=== PATIENT | female | born 2005 | race African-American/Black ===

== ENCOUNTER 2024-02-06 15:56 | Emergency (ER) | payer OTHER, SELFPAY ==
--- NOTE | ~2024-02-06 | XR_ITS ---
XR chest 2V Ordering provider: Jacinda Chao APRN History: 18 years Female with . couch, SOB, wheezing . Comparison: None. FINDINGS: MEDIASTINUM: The cardiac silhouette is not enlarged. LUNGS: No effusions or pneumothorax. Prominent bronchovascular markings in the lower lobes. Early opa cification the left lower lobe is not excluded. Follow-up advised. OTHER: No free air under the diaphragm. IMPRESSION: Prominent bronchovascular markings in the lower lobes. Early opacification which may indicate early p neumonia in the left lower lobe is not excluded. Follow-up advised. Reviewed, dictated and finalized at location A. IMPRESSION: Prominent bronchovascular markings in the lower lobes. Early opacification whic h may indicate early pneumonia in the left lower lobe is not excluded. Follow-u p advised.
[2024-02-06 16:00] VITALS: BP 143/86; PULSE 80; RESP 18; TEMP 36.3; O2SAT 100
--- NOTE | 2024-02-06 16:15 | ED.ASTHMA ---
HPI - Asthma General Chief Complaint: Asthma Stated Complaint: ASTHMA Time Seen by Provider: 02/06/24 16:15 History of Present Illness HPI Narrative: 18-year-old female Present to the emergency department for evaluation worsening shortness of breath secondary to asthma attack. Patient states he has been using her albuterol inhaler but has also been having increased seasonal allergies. Patient does have postnasal drip. Patient reports increased shortness breath and increased wheeze. Patient appears to be in no distress at time of evaluation. Patient denies any prior hospitalizations secondary to her asthma. Related Data Allergies Allergy/AdvReac Type Severity Reaction Status Date / Time Fish Containing Products Allergy Hives Verified 02/06/24 15:58 peanut Allergy Hives Verified 02/06/24 15:58 shellfish derived Allergy Hives Verified 02/06/24 15:58 Review of Systems Review of Systems: All systems reviewed & are unremarkable except as noted in HPI and below Exam Narrative: APPEARANCE: Well appearing, no pain, no distress, well-nourished. HEAD: normocephalic, atraumatic. EYES: PERRLA/EOMI, conjunctivae clear. NOSE: Normal no drainage EARS:TMS clear with good light reflex. THROAT: Pharynx clear, no exudate. NECK: Supple. No adenopathy, no masses. RESPIRATORY: Wheezing on expiration CARDIOVASCULAR: Regular rate and rhythm without murmurs rubs or gallops. ABDOMINAL: Soft, nontender, nondistended, normal bowel sounds MUSCULOSKELETAL: Moves all extremities. Strength/ROM intact, No edema, No calf tenderness. NEURO: Alert. Cranial nerves II through XII intact. Grossly intact SKIN: Warm, dry. Normal Color Course Vital Signs Vital signs: Vital Signs Temperature 97.3 F L 02/06/24 16:00 Pulse Rate 80 02/06/24 16:00 Respiratory Rate 18 02/06/24 16:00 Blood Pressure 143/86 H 02/06/24 16:00 Pulse Oximetry 100 02/06/24 16:00 Oxygen Delivery Room Air 02/06/24 16:00 Temperature 98.2 F 02/06/24 17:22 Pulse Rate 97 02/06/24 17:22 Respiratory Rate 18 02/06/24 17:22 Blood Pressure 150/85 H 02/06/24 17:22 Pulse Oximetry 100 02/06/24 17:22 Oxygen Delivery Room Air 02/06/24 16:05 MDM - Asthma MDM Narrative Medical decision making narrative: 18-year-old female presenting to the emergency department for evaluation for asthma and worsening shortness of breath. Chest x-ray is concerning for possible pneumonia. Patient will be started on antibiotics. Patient was advised to continue taking her Zyrtec while she is having seasonal allergies. Patient will be started on Prednisone and patient will also be started on a azithromycin and Augmentin for pneumonia. Differential Diagnosis Differential diagnosis: Likely Acute exacerbation, Status asthmaticus, Pneumonia, COPD exacerbation, Pulmonary edema dystolic and Pneumothorax Lab Data Labs: Lab Results 02/06/24 Range/Units 16:07 Influenza A (RT-PCR) Negative (Negative) Influenza B (RT-PCR) Negative (Negative) RSV (RT-PCR) Negative (Negative) SARS-CoV-2 RNA (RT-PCR) Negative (Negative) Discharge Plan Discharge Clinical Impression: Asthma with acute exacerbation, Pneumonia Patient Disposition: Home, Self-Care Condition: Stable Instructions: Antibiotic Form, Asthma (ED) Additional Instructions: antibiotic as directed until completed. Prednisone as directed until completed. Use your albuterol inhaler as directed with a spacer. If you have any worsening symptoms then please call or return to the emergency department. Prescriptions: New albuterol sulfate 90 mcg/actuation HFA aerosol inhaler 1 inh inhalation QID PRN (Reason: shortness of breath or wheezing) Qty: 6.7 0RF prednisone 50 mg tablet 50 mg PO DAILY 5 Days Qty: 5 0RF amoxicillin-pot clavulanate 875-125 mg tablet 1 tablet PO Q12H Qty: 14 0RF azithromycin 250 mg tablet See Rx Instructions .ROUTE .COMPLEX Qty: 6 0RF
[2024-02-06 16:50] VITALS: PULSE 82; RESP 18
[2024-02-06 16:50] LABS: Influenza A QL RT-PCR Negative (Negative); Influenza B QL RT-PCR Negative (Negative); RSV RNA, RT-PCR Negative (Negative); SARS-CoV-2 RNA PCR Negative (Negative)
[2024-02-06] MEDS: ALBUTEROL SULFATE NEB 2.5 MG/3 ML INH 5 MG INHALATION (16:50)
[2024-02-06 17:05] VITALS: PULSE 85; RESP 18
[2024-02-06] MEDS: AMOXICILLIN/CLAVULANATE K 875-125 MG TAB 1 TABLET PO (17:07)
[2024-02-06] MEDS: AZITHROMYCIN 250 MG TABLET 500 MG PO (17:08)
[2024-02-06 17:22] VITALS: BP 150/85; PULSE 97; RESP 18; TEMP 36.8; O2SAT 100
== END 2024-02-06 17:50 | disposition home or self-care (01) ==
LOC: ANHED 17:49
PROVIDERS: Registered Nurse; Emergency Provider Emergency Medicine
DX: J18.9 Pneumonia, unspecified organism (principal); J45.901 Unspecified asthma with (acute) exacerbation; Z20.822 Contact with and (suspected) exposure to COVID-19
CPT/HCPCS: 71046; 87637; 94640; 94664; 99283; A9270

== ENCOUNTER 2025-02-19 10:21 | Emergency (ER) | payer OTHER, SELFPAY ==
--- NOTE | ~2025-02-19 | XR_ITS ---
EXAMINATION: XR abdomen obstructive series, 02/19/2025 12:10 CDT HISTORY: constipation-right sided abdomen pain COMPARISON: No comparisons available. Technique: 3 view. Findings: Moderate fecal content, diminished air throughout the bowel No free air. No abnormal calcifications No acute osseous abnormality. Impression: 1. No acute abnormality. Reviewed, dictated and finalized at location P. Impression: 1. No acute abnormality.
[2025-02-19 10:24] VITALS: BP 143/74; PULSE 64; RESP 16; TEMP 36.6; O2SAT 98
--- NOTE | 2025-02-19 11:32 | ED_ITS ---
HPI - Nausea/Vomiting/Diarrhea General Chief complaint: Nausea/Vomiting/Diarrhea Stated complaint: n/v/d Time Seen by Provider: 02/19/25 11:26 Source: patient Mode of arrival: ambulatory Limitations: no limitations History of Present Illness HPI Narrative: Sacha is a 19-year-old female patient presenting to the emergency room with complaints of right-sided abdominal pain, nausea, vomiting, diarrhea/mucus. She has not taken any medications for her symptoms. Rates her pain a 01/31. States the pain is sharp, cramping, and constant. Last menstrual period was the last week of December. Is on control and her periods are irregular. CC states she has vomited a total of 3 times in the past week. Last bowel movement was 1 week ago. No blood in her stool. She denies any fevers, chills, body aches but does have some hot flashes at times. Related Data Allergies Allergy/AdvReac Type Severity Reaction Status Date / Time Fish Containing Products Allergy Hives Verified 02/19/25 10:24 peanut Allergy Hives Verified 02/19/25 11:29 shellfish derived Allergy Hives Verified 02/19/25 11:29 Review of Systems 2 Review of Systems: Pertinent positives per HPI. Patient denies any fever, chills, rash, headache, visual changes, dizziness, cough, runny nose, sore throat, shortness of breath, chest pain, palpitations, or any urinary issues. PMFSH Comments At the time of my signature, I reviewed and agree with the nursing past medical, surgical, social, and family history. There is no relevant family history pertinent to the patient complaint. Exam 2 Narrative: General: Well-developed, morbidly obese, in no apparent distress. Head: Normocephalic, atraumatic. Cardio: Regular rate and rhythm, s1 and s2 normal, no murmur appreciated. Resp: Clear to auscultation bilaterally, no rhonchi, rales, wheezing or rubs. Abdomen: Soft, pliable, bowel sounds present in all quadrants, right-sided abdomen tender to palpation, no organomegly, no CVAT tenderness. Course Course Emergency Course: Portions of this record may have been created with voice recognition software. Vital Signs Vital signs: Vital Signs Temperature 36.6 C 02/19/25 10:24 Pulse Rate 64 02/19/25 10:24 Respiratory Rate 16 02/19/25 10:24 Blood Pressure 143/74 H 02/19/25 10:24 Pulse Oximetry 98 02/19/25 10:24 Temperature 36.6 C 02/19/25 10:24 Pulse Rate 65 02/19/25 14:13 Respiratory Rate 18 02/19/25 14:13 Blood Pressure 115/60 02/19/25 14:13 Pulse Oximetry 100 02/19/25 14:13 Vital signs reviewed MDM - Nausea/Vomiting/Diarrhea MDM Narrative Medical decision making narrative: At the time of visit patient is resting comfortably on the exam table. Patient appears to be nontoxic. Complaints of right-sided abdominal pain, nausea, vomiting, diarrhea/mucus. She has not taken any medications for her symptoms. Rates her pain a 10/10. States the pain is sharp, cramping, and constant. Last menstrual period was the last week of December. Is on control and her periods are irregular. CC states she has vomited a total of 3 times in the past week. Last bowel movement was 1 week ago. No blood in her stool. Patient states she feels constipated. She denies any fevers, chills, body aches but does have some hot flashes at times. Labs and x-ray the abdomen was ordered. Labs: CBC shows white blood cell count of 5.4, H&H 12.840.8, chemistry unremarkable, urine shows cloudy urine with 1+ protein, 4+ ketones, 1+ blood, 2+ leuko Estrace, 11-20 red blood cells, 21-50 white blood cells, 1+ bacteria, bedside test was negative. Diagnostics: X-ray of the abdomen shows moderate stool in the colon without sign of obstruction. Medications: Rocephin 1 g IV piggyback was given in the ER. Plan: I suspect patient has UTI with possibly moderate constipation. Encouraged to use MiraLax daily. Patient is currently taking Macrobid for her UTI. Will switch to cephalexin. Supportive measures were discussed with the patient and they voiced understanding discharge instructions and agrees to treatment plan. Return precautions reviewed Differential Diagnosis Differential diagnosis: Likely traveler's diarrhea, food poisoning, gastroenteritis, clostridium difficile infection, drug-induced nausea and vomiting, dehydration and other (UTI, obstruction) Lab Data 02/19/25 11:50 02/19/25 11:50 Labs: Lab Results 02/19/25 Range/Units 11:50 WBC 5.4 (4.5-10.0) K/mm3 RBC 4.73 (4.2-5.4) M/mm3 Hgb 12.8 (12.0-15.0) g/dL Hct 40.8 (37.0-47.0) % MCV 86.3 (80-100) fl MCH 27.1 (26-34) pg MCHC 31.4 L (32-36) g/dl RDW 13.6 (11.5-14.5) % Plt Count 248 (150-375) k/mm3 MPV 10.5 H (7.4-10.4) fl Immature Gran % (Auto) 0.2 (0-0.5) % Neut % (Auto) 57.8 (45.5-73.1) % Lymph % (Auto) 30.8 (18.3-44.2) % [place] % (Auto) 7.1 (2.6-8.5) % Eos % (Auto) 3.2 (0-4.4) % Baso % (Auto) 0.9 (0.2-1.2) % Lymph # (Auto) 1.65 (0.9-3.2) K/mm3 [place] # (Auto) 0.4 (0.1-0.6) K/mm3 Eos # (Auto) 0.2 (0-0.3) K/mm3 Baso # (Auto) 0.1 (0.0-0.1) K/mm3 Abs Immat Gran (auto) 0.01 (0.00-0.031) K/mm3 Absolute Neuts (auto) 3.1 (1.3-6.7) K/mm3 Absolute Nucleated RBC 0.000 (0.0-0.012) K/mm3 Nucleated RBC % 0.0 (0.0-0.2) % Sodium 137 (137-145) mmol/L Potassium 4.3 (3.4-5.0) mmol/L Chloride 105 (98-107) mmol/L Carbon Dioxide 22 (22-30) mmol/L Anion Gap 10 (4-12) mmol/L BUN 9 (7-17) mg/dL Creatinine 0.85 (0.7-1.0) mg/dL Estim Creat Clear Calc 145 ml/min Estimated GFR > 60 (59 - ) Glucose 89 (65-110) mg/dL Calcium 8.9 (8.4-10.2) mg/dL Total Bilirubin 1.1 (0.2-1.3) mg/dL AST 36 (14-36) U/L ALT 15 (6-35) U/L Alkaline Phosphatase 51 (38-126) U/L Total Protein 8.4 H (6.3-8.2) g/dL Albumin 4.5 (3.5-5.1) g/dL Lipase 66 (23-300) U/L Urine Color Yellow (Yellow) Urine Appearance Cloudy H (Clear) Urine pH 6.0 (5.0-9.0) Ur Specific [place] 1.026 (1.001-1.035) Urine Protein 1+ H (Negative) mg/dL Urine Glucose (UA) Negative (Negative) mg/dL Urine Ketones 4+ H (Negative) mg/dL Ur Blood (Man) 1+ H (Negative) Urine Nitrate Negative (Negative) Urine Bilirubin Negative (Negative) Urine Urobilinogen 1.0 (<2.0) mg/dL Add Ur Microanalysis Reviewed Leukocyte Esterase Rfl 2+ H (Negative) JAMSHID/UL Urine RBC 11-20 H (0-2) /hpf Urine WBC 21-50 H (0-3) /hpf Ur Squamous Epith Cells Many H (Few) /hpf Urine Bacteria 1+ H /hpf Urine Casts 3-5 POC Urine HCG, Qual Negative (Negative) Imaging Data Radiologist's impression: ITS Impressions Abdomen X-Ray 02/19/25 12:19 Impression: 1. No acute abnormality. Discharge Plan Discharge Clinical Impression: Right sided abdominal pain UTI (urinary tract infection) Qualifiers: Urinary tract infection type: acute cystitis Hematuria presence: with hematuria Qualified Code(s): N30.01 - Acute cystitis with hematuria Patient Disposition: Home Condition: Stable Instructions: Antibiotic Form, Urinary Tract Infection in Women (ED), Abdominal Pain (ED) Additional Instructions: Rocephin 1 g IV piggyback given in the ER Labs are reassuring Urinalysis shows UTI X-ray of the abdomen shows moderate stool in your abdomen without sign of obstruction Increase fluids and stay well hydrated May take MiraLax daily for constipation as needed Stop Macrobid and start cephalexin. Follow-up with your PCP in 3-5 days if symptoms persist or sooner if they worsen Patient Language: South Korean Prescriptions: New cephalexin 500 mg capsule 500 mg PO Q12H 7 Days Qty: 14 0RF No Action albuterol sulfate 90 mcg/actuation HFA aerosol inhaler 1 inh inhalation QID PRN (Reason: shortness of breath or wheezing) Qty: 6.7 0RF prednisone 50 mg tablet 50 mg PO DAILY 5 Days Qty: 5 0RF amoxicillin-pot clavulanate 875-125 mg tablet 1 tablet PO Q12H Qty: 14 0RF azithromycin 250 mg tablet See Rx Instructions .ROUTE .COMPLEX Qty: 6 0RF Rx Instructions: For 250 mg dose pack: take 500 mg today (day 1), then 250 mg for 4 days (days 2-5) Follow-up/Referrals: UNKNOWN,DOCTOR [Primary Care Provider] Time of Disposition: 14:01 Quality NIHSS Nursing Documentation ED NIHSS nursing documentation: reviewed/agree
--- OUTSIDE RECORDS SUMMARY | 2025-02-19 11:36 | XMS_ITS | Clinical Summary ---
Author Organization [facility] Address [address] [place] [address] Care Team Providers Care Grain Elevator Man Name Role Phone Primo Min GYROSCOPIC INSTRUMENT MECHANIC Primary Care Provider [phone] Source Comments You are receiving this document as you are listed as the PCP, follow-upprovider, or the patient hasbeen referred to you for consultation. This is incompliance with [facility] Transitions of Care Requirement. Note: Specific treatmentrecords and notes about services for mental health, developmental disabilities,alcoholism, drug dependence, or substance abuse, you will need to contact theMedical Records Department at [phone] and complete a separate Release ofAuthorization form. They are also available to answer other questions.[facility] Allergies No known active allergies Medications * Please verify all current medications with the patient. Medication Sig Dispensed Refills Start Date End Date Status albuterol (PROVENTIL, VENTOLIN) 90 mcg base/puff Aero Soln HFA inhaler Inhale 1 Puff into the lungs every 6 (six) hours if needed. Active Active Problems Problem Noted Date Diagnosed Date Difficult airway 08/30/2023 Right arm weakness Brachial plexopathy, congenital Encounters Date Type Department Care Team Description 12/05/2024 2:15 PM CDT Therapy Visit [facility] [address] [place] [address] Laura Flores MD Ringer, Cathy, OTR/L Discharge Disposition: HOME 12/04/2024 4:00 PM CDT [facility] [address] [place] [address] Laura Flores MD Ringer, Cathy, OTR/L Discharge Disposition: HOME 12/03/2024 3:15 PM CDT [facility] [address] [place] [address] Laura Flores MD Grbic, Bozana Discharge Disposition: HOME 11/27/2024 12:45 PM CDT Therapy Visit [facility] [address] [place] [address] Laura Flores MD Ringer, Cathy, OTR/L Discharge Disposition: HOME 11/21/2024 4:00 PM CDT Therapy Visit [facility] [address] [place] [address] Laura Flores MD Grbic, Bozana Discharge Disposition: HOME from Last 3 Months Social History Tobacco Use Types Packs/Day Years Used Date Smoking Tobacco: Never Passive Smoke Exposure: Never Smokeless Tobacco: Never Tobacco Cessation:Counseling Given: Yes Alcohol Use Standard Drinks/Week Comments Never 0 (1 standard drink = 0.6 oz pur e alcohol) Overall Financial Resource Strain (CARDIA) Answe r Date Recorded How hard is it for you to pa y for the very basics like food, housing, medical care, and heating? Not hard at all 11/14/2024 PHQ-2 Answer Date Recorded PHQ-2 Score 0 08/01/2023 Hunger Vital Sign Answer Date Recorded Within the past 12 months, y ou worried that your food would run out before you got the money to buy more. Never true 11/15/19 25 Within the past 12 months, t he food you bought just didn't last and you didn't have money to get more. Never true 11/14/2024 PRAPARE - Transportation Answer Date Re corded In the past 12 months, has l ack of transportation kept you from medical appointments or from getting medications? No 10/23 In the past 12 months, has l ack of transportation kept you from meetings, work, or from getting things needed for daily living? Yes 11/14/2024 Housing Stability Vital Sign Answer Oh e Recorded In the last 12 months, was t here a time when you were not able to pay the mortgage or rent on time? No 10/18/2023 In the last 12 months, how many places have you lived? 1 10/18/2023 In the last 12 months, was t here a time when you did not have a steady place to sleep or slept in a fci (including now)? No 10/18/2023 Sex and Gender Information Value Date Recorded Sex Assigned at Not on file Gender Identity Not on file Sexual Orientation Not on file Last Filed Vital Signs Vital Sign Reading Time Taken Comments Blood Pressure 117/83 10/18/2023 1:52 PM CDT Pulse 107 10/18/2023 1:52 PM CDT Temperature - - Respiratory Rate - - Oxygen Saturation 100% 10/18/2023 1:52 PM CDT Inhaled Oxygen Concentration - - Weight 151.1 kg (333 lb 3.2 oz) 10/18/2023 1:52 PM CDT Height 173 cm (5' 8.11) 10/18/2023 1:52 PM CDT Body Mass Index 50.5 10/18/2023 1:52 PM CDT Plan of Treatment Health Maintenance Due Date Last Done Comments HIV SCREEN 12/25/2019 ANNUAL BMI COUNSELING 07/31/2024 08/01/2023 ANNUAL DEPRESSION SCREENING,ADULT 07/31/2024 08/01/2023 Covid-19 Vaccine (2 6 season) 2024 04/09/2021 INFLUENZA VACCINE (#1) 2024 CHOL SCREENING: EVERY 5 YEARS 2024 ADULT VACCINE: TETANUS( TD) BOOSTER,EVERY 10 YR 09/23/2026 09/23/2016 ADULT VACCINE: SHINGRIX (1 o f 2) 2054 VACCINE: HPV (CDC RULES) Completed 018, 11/29/2016, 10/27/2016 PEDS RSV < 20 MON Aged Out No longer eligible based on patient's age to complete this topic PNEUMOCOCCAL VACCINE Aged Out No long er eligible based on patient's age to complete this topic Care Teams Grain Elevator Man Relationship Specialty Start Date End Date Primo Min NP [address] [place] [id number] PCP - General Family Practice 02/13/23
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
--- OUTSIDE RECORDS SUMMARY | 2025-02-19 11:36 | XMS_ITS | Clinical Summary ---
Author Organization [facility] Care Team Providers Care Guard Range Name Role Phone Unavailable Primary Care Provider Unavailabl e Social History Tobacco Use Types Packs/Day Years Used Date Smoking Tobacco: Never Assessed Comments Unknown Sex and Gender Information Value Date Recorded Sex Assigned at Not on file Legal Sex Female 1:04 PM SYSTEM DEVELOPMENT MANAGER Gender Identity Not on file Sexual Orientation Not on file Plan of Treatment Health Maintenance Due Date Last Done Comments Hepatitis C Virus (HCV) Screening 2004 TdaP Immunization 2004 Human Papillomavirus (HPV) Immunization (1 - 3-dose series) 12/25/2019 Meningococcal B Immunization (1 of 2 - Standard) 2020 Hepatitis B Immunization (1 of 3 - 19+ 3-dose series) 12/25/2023 Influenza Immunization (#1) 2024 SARS-COV-2 Immunization ( - season) 2024 Respiratory Syncytial Virus (RSV) Immunization (Adult) (1 - 1-dose 75+ series) 12/25/2079 Meningococcal Immunization (ACWY) Aged Out No longer eligible based on patient's age to complete this topic Pneumococcal Immunization Combined Aged Out No longer eligible based on patient's age to complete this topic Rotavirus Immunization Aged Out No lo nger eligible based on patient's age to complete this topic
[2025-02-19 11:53] LABS: BEDSIDEPREGUCG Negative (Negative)
[2025-02-19 11:59] LABS: Hematocrit 40.8 % (37.0-47.0); Hemoglobin 12.8 g/dL (12.0-15.0); Immature Granulocyte Percent A 0.2 % (0-0.5); Lymphocytes Absolute Auto 1.65 K/mm3 (0.9-3.2); Mean Corpuscular HGB Conc 31.4 g/dl (32-36); Mean Corpuscular Hemoglobin 27.1 pg (26-34); Mean Corpuscular Volume 86.3 fl (80-100); Nucleated Red Blood Cells Absolute Auto 0.000 K/mm3 (0.0-0.012); Nucleated Red Blood Cells Perc 0.0 % (0.0-0.2); Platelet Count Result 248 k/mm3 (150-375); Red Blood Count 4.73 M/mm3 (4.2-5.4); White Blood Count 5.4 K/mm3 (4.5-10.0)
[2025-02-19 12:12] LABS: Add Urine Microscopic? YES; Appearance Urine Cloudy (Clear); Glucose Urine UA Negative (Negative); Leukocyte Esterase Ur 2+ LEU/UL (Negative); Need Manual Microscopic Reviewed; Nitrate Urine Negative (Negative); Specific Grav Ur 1.026 (1.001-1.035)
[2025-02-19 12:28] LABS: Alanine Aminotransferase 15 U/L (6-35); Albumin Level 4.5 g/dL (3.5-5.1); Alkaline Phosphatase 51 U/L (38-126); Anion Gap 10 mmol/L (4-12); Aspartate Amino Transferase 36 U/L (14-36); Bilirubin,Total 1.1 mg/dL (0.2-1.3); Blood Urea Nitrogen 9 mg/dL (7-17); Calcium 8.9 mg/dL (8.4-10.2); Carbon Dioxide 22 mmol/L (22-30); Chloride 105 mmol/L (98-107); Estimated CRCL calculation 145 ml/min; Estimated Glomerular Filt Rate > 60; Glucose 89 mg/dL (65-110); Lipase 66 U/L (23-300); Potassium 4.3 mmol/L (3.4-5.0); Sodium 137 mmol/L (137-145); Total Protein 8.4 g/dL (6.3-8.2)
[2025-02-19] MEDS: IBUPROFEN 400 MG TABLET 800 MG PO (13:08)
[2025-02-19] MEDS: cefTRIAXone 1 GM in SODIUM CHLORIDE 0.9% IV 50 ML 100 ML IVPB (13:08)
--- OUTSIDE RECORDS SUMMARY | 2025-02-19 13:17 | XMS_ITS | Clinical Summary ---
Author Organization [facility] Address [address] [place] [address] Care Team Providers Care Blood Bank Technologist Name Role Phone Pcp Outside [facility], Unknown Primary Care Provider U navailable Allergies [...] negative. Positive results are reported to the [facility] Department of Public Health. The Aptima Combo [...] l Result ACL [place] [facility] [address] [place] [address] from Last 3 Months or Most Recently Relevant to Health Maintenance Insurance [facility] Member Subscriber Plan / Payer (Ef fective 2020-Present) Name:Sacha Pedraza Relation to Subscriber:Self Name:Sacha Pedraza Payer ID:Not on file Type:T19 HMO Address: [address] [address] [facility] Member Subscriber Plan / Payer (Ef fective 2020-Present) Name:Sacha Pedraza Relation to Subscriber:Self Name:Sacha Pedraza Payer ID:Not on file Type:T19 [facility] Address: [address] [place] [address] [employer] Member Subscriber Plan / Payer (Ef fective 2021-Present) Name:Sacha Pedraza Relation to Subscriber:Self Name:Sacha Pedraza Payer ID:Not on file Type:T19 Address: [address] [address] [place] [address] Care Teams Blood Bank Technologist Relationship Specialty Start Date End Date Pcp Outside [facility], Unknown NO KNOWN ADDRESS ON FILE PCP - General 09/06/23
--- OUTSIDE RECORDS SUMMARY | 2025-02-19 13:17 | XMS_ITS | Clinical Summary ---
Author Organization [facility] Address [address] [place] [address] Care Team Providers Care Food Assembler Kitchen Name Role Phone Primo Min CABLE ENGINEER Primary Care Provider [phone] Source Comments You are receiving this document as you are listed as the PCP, follow-upprovider, or the patient hasbeen referred to you for consultation. This is incompliance with [facility] Transitions of Care Requirement. Note: Specific treatmentrecords and notes about services for mental health, developmental disabilities,alcoholism, drug dependence, or substance abuse, you will need to contact theMedical Records Department at [phone] and complete a separate Release ofAuthorization form. They are also available to answer other questions.[facility] Allergies No known active allergies Medications * [...] Description 12/05/2024 2:15 PM CDT Therapy Visit [facility] [address] [address] [place] [address] Laura Flores MD Ringer, Cathy, OTR/L Discharge Disposition: HOME 12/04/2024 4:00 PM CDT Therapy Visit [facility] [address] [place] [address] Laura Flores MD Ringer, Cathy, OTR/L Discharge Disposition: HOME 12/03/2024 3:15 PM CDT Therapy [facility] [address] [address] [place] [address] Laura Flores MD Grbic, Bozana Discharge Disposition: HOME 11/27/2024 12:45 PM CDT Therapy Visit [facility] [address] [place] [address] Laura Flores MD Ringer, Cathy, OTR/L Discharge Disposition: HOME 11/21/2024 4:00 PM CDT Therapy Visit [facility] [address] [place] [address] Laura Flores MD Grbic, Bozana Discharge Disposition: [...] place to sleep or slept in a fpc (including now)? No 10/18/2023 Sex and Gender [...] age to complete this topic Care Teams Food Assembler Kitchen Relationship Specialty Start Date End Date Primo Min NP [address] [place] [phone] PCP - General Family Practice 02/13/23
--- OUTSIDE RECORDS SUMMARY | 2025-02-19 13:17 | XMS_ITS | Clinical Summary ---
Author Organization [facility] Care Team Providers Care Speech Language Pathology Assistant Name Role Phone Unavailable Primary Care Provider Unavailabl e Social History Tobacco Use Types Packs/Day Years Used Date Smoking Tobacco: Never Assessed Comments Unknown Sex and Gender Information Value Date Recorded Sex Assigned at Not on file Legal Sex Female 1:04 PM NEONATAL ICU COORDINATOR Gender Identity Not on file Sexual Orientation [...]
[2025-02-19 14:13] VITALS: BP 115/60; PULSE 65; RESP 18; O2SAT 100
== END 2025-02-19 14:15 | disposition home or self-care (01) ==
PROVIDERS: Emergency Provider Nurse Practitioner Family
DX: N30.01 Acute cystitis with hematuria (principal)
CPT/HCPCS: 36415; 74019; 80053; 81001; 81025; 83690; 85025; 96365; 99284; A9270; J0696

== ENCOUNTER 2025-02-22 12:21 | Emergency (ER) | payer OTHER, SELFPAY ==
--- NOTE | ~2025-02-22 | CT_ITS ---
Sacha Pedraza EXAMINATION: CT abdomen pelvis w con COMPARISON: None HISTORY: ABDOMINAL PAIN TECHNIQUE: Axial images were obtained through the abdomen, pelvis post administration of IV contrast. Oral contrast was also administered. Coronal reconstruction images were obtained from the axial views. CT scan performed using dose optimization techniques including the following automated exposure control; adjustment of mA and/or kV; use of iterative reconstruction technique. Automatic exposure control was used to reduce radiation dose. Permanent radiation dose record is archived to PACS. FINDINGS: CT abdomen: LUNG BASES: The lung bases are clear. The visualized portions of the heart and pericardium are unremarkable. LIVER: Unremarkable, liver contours intact, no lesions. SPLEEN: Unremarkable. KIDNEYS: Right Kidney: Unremarkable. No calculi. No hydronephrosis. Left Kidney: Unremarkable. No calculi. No hydronephrosis ADRENAL GLANDS: Unremarkable. PANCREAS: Unremarkable. GALLBLADDER/BILIARY: Unremarkable. No biliary dilatation. STOMACH AND ESOPHAGUS: Visualized stomach and esophagus within normal limits. BOWEL/MESENTERY: No colitis or diverticulitis. Appendix normal. Mesentery normal. Small bowel normal. ADENOPATHY/RETROPERITONEUM: No lymphadenopathy. AORTA/VASCULATURE: Normal caliber aorta. FREE FLUID OR FREE AIR: None. CT pelvis: SOLID ORGANS/REPRODUCTIVE: Unremarkable. BLADDER: Mild circumferential thickening of the bladder related to underlying cystitis. OSSEOUS STRUCTURES: No acute osseous abnormality.No suspicious lesions. OVERLYING SOFT TISSUES: Unremarkable. IMPRESSION: No acute intra-abdominal process Reviewed, dictated and finalized at location P.
--- OUTSIDE RECORDS SUMMARY | 2025-02-22 12:24 | XMS_ITS | Clinical Summary ---
Author Organization [facility] Address [address] [place] [address] Care Team Providers Care Design Leader Name Role Phone Pcp Outside [facility], Unknown Primary Care Provider U navailable [...] negative. Positive results are reported to the [facility] Department of Public Health. The Aptima Combo [...] l Result [place] [facility] [address] [place] [address] from Last 3 Months or Most Recently Relevant to Health Maintenance Insurance [facility] Member Subscriber Plan / Payer (Ef fective 2020-Present) Name:Sacha Pedraza Relation to Subscriber:Self Name:Sacha Pedraza Payer ID:Not on file Type:T19 HMO Address: [address] [address] [facility] Member Subscriber Plan / Payer (Ef fective 2020-Present) Name:Sacha Pedraza Relation to Subscriber:Self Name:Sacha Pedraza Payer ID:Not on file Type:T19 [facility] Address: [address] [place] [address] [employer] Member Subscriber Plan / Payer (Ef fective 2021-Present) Name:Sacha Pedraza Relation to Subscriber:Self Name:Sacha Pedraza Payer ID:Not on file Type:T19 Address: [address] [address] [place] [address] Care Teams Design Leader Relationship Specialty Start Date End Date Pcp Outside [facility], Unknown NO KNOWN ADDRESS ON FILE PCP - General 09/06/23
--- OUTSIDE RECORDS SUMMARY | 2025-02-22 12:24 | XMS_ITS | Clinical Summary ---
Author Organization [facility] Care Team Providers Care Manager Business Management Name Role Phone Unavailable Primary Care Provider Unavailabl e Social History Tobacco Use Types Packs/Day Years Used Date Smoking Tobacco: Never Assessed Comments Unknown Sex and Gender Information Value Date Recorded Sex Assigned at Not on file Legal Sex Female 1:04 PM GRADING SUPERVISOR Gender Identity Not on file Sexual Orientation [...]
--- OUTSIDE RECORDS SUMMARY | 2025-02-22 12:24 | XMS_ITS | Clinical Summary ---
Author Organization [facility] Address [address] [place] [address] Care Team Providers Care Lost Charge Card Clerk Name Role Phone Primo Min CONSTRUCTION SUPERINTENDENT Primary Care Provider [phone] Source Comments You are receiving this document as you are listed as the PCP, follow-upprovider, or the patient hasbeen referred to you for consultation. This is incompliance with [facility] Transitions of Care Requirement. Note: Specific treatmentrecords and notes about services for mental health, developmental disabilities,alcoholism, drug dependence, or substance abuse, you will need to contact theMedical Records Department at [phone] and complete a separate Release ofAuthorization form. They are also available to answer other questions.[facility] Allergies No known active allergies Medications [...] Description 12/05/2024 2:15 PM CDT Therapy Visit [facility] [address] [address] [place] [address] Laura Flores MD Ringer, Cathy, OTR/L Discharge Disposition: HOME 12/04/2024 4:00 PM CDT [facility] [address] [place] [address] Laura Flores MD Ringer, Cathy, OTR/L Discharge Disposition: HOME 12/03/2024 3:15 PM CDT [facility] [address] [place] [phone] Laura Flores MD Grbic, Bojarodgriffin Discharge Disposition: HOME 11/27/2024 12:45 PM CDT [facility] [address] [place] [phone] Laura Flores MD Ringer, Cathy, OTR/L Discharge Disposition: HOME from Last 3 Months [...] place to sleep or slept in a chcf (including now)? No 10/18/2023 Sex and Gender [...] DEPRESSION SCREENING,ADULT 07/31/2024 08/01/2023 Covid-19 Vaccine (2 - 2024-2 6 season) 2024 04/09/2021 INFLUENZA VACCINE (#1) [...] age to complete this topic Care Teams Lost Charge Card Clerk Relationship Specialty Start Date End Date Primo Min NP [address] [place] [phone] PCP - General Family Practice 02/13/23
[2025-02-22 12:30] VITALS: BP 137/67; PULSE 66; RESP 16; TEMP 36.9; O2SAT 100
--- NOTE | 2025-02-22 13:06 | ED_ITS ---
HPI - Abdominal Pain General Chief Complaint: Recheck/Abnormal Lab/Rx Stated Complaint: seen 02/19 RLQ pain, still has pain +N/V Time Seen by Provider: 02/22/25 13:05 Source: patient Mode of arrival: ambulatory Limitations: no limitations History of Present Illness HPI narrative: INTERMITTENT RIGHT ABDOMINAL PAIN FOR THE LAST 7 DAYS, ASSOCIATED WITH NAUSEA, VOMITING, HEAT FLUSH LIKE FEELING. PATIENT DENIES RADIATION OF PAIN, AGGRAVATING OR RELIEVING FACTORS, DENIES HISTORY OF ABDOMINAL SURGERY. PATIENT DENIES SMOKING OR DRINKING, SHE IS USING MARIJUANA DAILY. SHE DENIES ANY FEVER OR CHILLS. Related Data Allergies Allergy/AdvReac Type Severity Reaction Status Date / Time Fish Containing Products Allergy Hives Verified 02/19/25 10:24 peanut Allergy Hives Verified 02/19/25 11:29 shellfish derived Allergy Hives Verified 02/19/25 11:29 Review of Systems 2 Review of Systems: All systems reviewed & are unremarkable except as noted in HPI and below Exam 2 Narrative: GENERAL APPEARANCE: WELL-DEVELOPED, WELL-NOURISHED SKIN: NORMAL COLOR HEAD: NORMOCEPHALIC, NONTRAUMATIC EYES: CLEAR CONJUNCTIVA ENT: OROPHARYNX NORMAL, EARS NORMAL, NOSE NORMAL NECK: SUPPLE, NONTENDER CHEST AND RESPIRATORY: AIRWAY PATENT, NO RESPIRATORY DISTRESS, NO ACCESSORY MUSCLE USE HEART: REGULAR RATE/RHYTHM ABDOMEN: SOFT, DIFFUSE TENDERNESS RIGHT ABDOMEN, NO GUARDING OR REBOUND, QUITE BOWEL SOUNDS VASCULAR: NORMAL PERIPHERAL PULSES, NORMAL CAPILLARY REFILL. MUSCULOSKELETAL: NORMAL RANGE OF MOTION, NONTENDER BACK NEUROLOGIC: ALERT AND ORIENTED ?3, FABRICATION SUPERVISOR IS NORMAL TESTED, NO GROSS MOTOR DEFICIT Course Vital Signs Vital signs: Vital Signs Temperature 36.9 C 02/22/25 12:30 Pulse Rate 66 02/22/25 12:30 Respiratory Rate 16 02/22/25 12:30 Blood Pressure 137/67 02/22/25 12:30 Pulse Oximetry 100 02/22/25 12:30 Oxygen Delivery Room Air 02/22/25 12:30 Temperature 36.9 C 02/22/25 12:30 Pulse Rate 66 02/22/25 12:30 Respiratory Rate 16 02/22/25 12:30 Blood Pressure 137/67 02/22/25 12:30 Pulse Oximetry 100 02/22/25 12:30 Oxygen Delivery Room Air 02/22/25 12:30 MDM - Abdominal Pain MDM Narrative Medical decision making narrative: PATIENT CAME WITH HER RIGHT ABDOMINAL PAIN FOR THE LAST FEW DAYS VITAL SIGNS ARE STABLE PHYSICAL EXAMINATION SHOWING SOME TENDERNESS AT THE RIGHT ABDOMEN WITHOUT GUARDING OR REBOUND DIFFERENTIAL DIAGNOSIS INCLUDE AA CHOLECYSTITIS, APPENDICITIS, COLITIS, DIVERTICULITIS, CONSTIPATION, URINARY TRACT INFECTION, ABDOMINAL WALL TENDERNESS BLOOD WORKUP TODAY INCLUDES CBC, CMP, LIPASE SHOWED NO SIGNIFICANT ABNORMALITY URINALYSIS SHOWED NO SIGNIFICANT ABNORMALITY CT ABDOMEN AND PELVIS WITH IV CONTRAST SHOWED NO SIGNIFICANT ABNORMALITY DIAGNOSIS ABDOMINAL PAIN THE PT WAS DISCHARGED TO HOME.THE PT,S CONDITION UPON DISCHARGE WAS FAIR,EDUCATION WAS PROVIDED TO THE PT IN REFERENCE TO THE FINAL IMPRESSION,DISCHARGE STUDY RESULTS,TREATMENT,PROGNOSIS AND NEED FOR FOLLOW UP . Differential Diagnosis Differential diagnosis: Likely other ( ABOVE) Medical Records Attestation: I reviewed the patient's medical records. Lab Data Attestation: I reviewed the patient's lab results. 02/22/25 13:45 02/22/25 13:45 Labs: Lab Results 02/22/25 02/22/25 Range/Units 13:30 13:45 WBC 7.5 (4.5-10.0) K/mm3 RBC 4.72 (4.2-5.4) M/mm3 Hgb 12.7 (12.0-15.0) g/dL Hct 40.3 (37.0-47.0) % MCV 85.4 (80-100) fl MCH 26.9 (26-34) pg MCHC 31.5 L (32-36) g/dl RDW 13.7 (11.5-14.5) % Plt Count 265 (150-375) k/mm3 MPV 11.0 H (7.4-10.4) fl Immature Gran % (Auto) 0.1 (0-0.5) % Neut % (Auto) 64.2 (45.5-73.1) % Lymph % (Auto) 25.7 (18.3-44.2) % [place] % (Auto) 7.0 (2.6-8.5) % Eos % (Auto) 2.3 (0-4.4) % Baso % (Auto) 0.7 (0.2-1.2) % Lymph # (Auto) 1.93 (0.9-3.2) K/mm3 [place] # (Auto) 0.5 (0.1-0.6) K/mm3 Eos # (Auto) 0.2 (0-0.3) K/mm3 Baso # (Auto) 0.1 (0.0-0.1) K/mm3 Abs Immat Gran (auto) 0.01 (0.00-0.031) K/mm3 Absolute Neuts (auto) 4.8 (1.3-6.7) K/mm3 Absolute Nucleated RBC 0.000 (0.0-0.012) K/mm3 Nucleated RBC % 0.0 (0.0-0.2) % Sodium 138 (137-145) mmol/L Potassium 3.9 (3.4-5.0) mmol/L Chloride 105 (98-107) mmol/L Carbon Dioxide 23 (22-30) mmol/L Anion Gap 10 (4-12) mmol/L BUN 6 L (7-17) mg/dL Creatinine 0.87 (0.7-1.0) mg/dL Estim Creat Clear Calc 144 ml/min Estimated GFR > 60 (59 - ) Glucose 98 (65-110) mg/dL Calcium 9.3 (8.4-10.2) mg/dL Total Bilirubin 1.1 (0.2-1.3) mg/dL AST 28 (14-36) U/L ALT 17 (6-35) U/L Alkaline Phosphatase 54 (38-126) U/L Total Protein 8.6 H (6.3-8.2) g/dL Albumin 4.5 (3.5-5.1) g/dL Lipase 79 (23-300) U/L Urine Color Yellow (Yellow) Urine Appearance Cloudy H (Clear) Urine pH 6.0 (5.0-9.0) Ur Specific Christopher 1.018 (1.001-1.035) Urine Protein Negative (Negative) mg/dL Urine Glucose (UA) Negative (Negative) mg/dL Urine Ketones 3+ H (Negative) mg/dL Ur Blood (Man) Negative (Negative) Urine Nitrate Negative (Negative) Urine Bilirubin Negative (Negative) Urine Urobilinogen 0.2 (<2.0) mg/dL Leukocyte Esterase Rfl Negative (Negative) JAMSHID/UL Urine RBC 0-2 (0-2) /hpf Urine WBC 0-5 (0-3) /hpf Ur Squamous Epith Cells None seen (Few) /hpf Urine Bacteria None seen /hpf Urine Casts 0-2 POC Urine HCG, Qual Negative (Negative) Imaging Data Radiologist's impression: ITS Impressions Abdomen/Pelvis CT 02/22/25 14:39 IMPRESSION: No acute intra-abdominal process Critical Care Time Critical Care Time Critical Care Time: No Discharge Plan Discharge Clinical Impression: Abdominal pain Patient Disposition: Home Condition: Stable Instructions: Abdominal Pain (ED) Additional Instructions: RETURN IF SYMPTOMS ARE WORSENING , CALL YOUR FAMILY PHYSICIAN FOR APPOINTMENT, TAKE TYLENOL NEEDED FOR ACHES AND PAIN, CONTINUE HOME MEDICATIONS. Patient Language: Yoruba Prescriptions: No Action cephalexin 500 mg capsule 500 mg PO Q12H 7 Days Qty: 14 0RF albuterol sulfate 90 mcg/actuation HFA aerosol inhaler 1 inh inhalation QID PRN (Reason: shortness of breath or wheezing) Qty: 6.7 0RF prednisone 50 mg tablet 50 mg PO DAILY 5 Days Qty: 5 0RF amoxicillin-pot clavulanate 875-125 mg tablet 1 tablet PO Q12H Qty: 14 0RF azithromycin 250 mg tablet See Rx Instructions .ROUTE .COMPLEX Qty: 6 0RF Rx Instructions: For 250 mg dose pack: take 500 mg today (day 1), then 250 mg for 4 days (days 2-5) Follow-up/Referrals: UNKNOWN,DOCTOR [Primary Care Provider]
--- OUTSIDE RECORDS SUMMARY | 2025-02-22 13:21 | XMS_ITS | Clinical Summary ---
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
--- OUTSIDE RECORDS SUMMARY | 2025-02-22 13:21 | XMS_ITS | Clinical Summary ---
Author Organization [facility] Address [address] [place] [address] Care Team Providers Care Tapping Machine Operator Automatic Name Role Phone Primo Min BOILERMAKING SUPERVISOR Primary Care Provider [phone] Source Comments You are receiving this document as you are listed as the PCP, follow-upprovider, or the patient hasbeen referred to you for consultation. This is incompliance with [facility] Transitions of Care Requirement. Note: Specific treatmentrecords and notes about services for mental health, developmental disabilities,alcoholism, drug dependence, or substance abuse, you will need to contact theMedical Records Department at [phone] and complete a separate Release ofAuthorization form. They are also available to answer other questions.[facility] Allergies No known active allergies [...] Description 12/05/2024 2:15 PM CDT Therapy Visit [facility] [address] [address] [place] [address] Laura Flores MD Ringer, Cathy, OTR/L Discharge Disposition: HOME 12/04/2024 4:00 PM CDT [facility] [address] [place] [address] Laura Flores MD Ringer, Cathy, OTR/L Discharge Disposition: HOME 12/03/2024 3:15 PM CDT [facility] [place] [address] [place] [phone] Laura Flores MD Grbic, Bojarodgriffin Discharge Disposition: HOME 11/27/2024 12:45 PM CDT Therapy [facility] [place] [address] [place] [address] Laura Flores MD Ringer, Cathy, OTR/L Discharge [...] place to sleep or slept in a jail (including now)? No 10/18/2023 Sex and Gender [...] age to complete this topic Care Teams Tapping Machine Operator Automatic Relationship Specialty Start Date End Date Primo Min NP [address] [place] [phone] PCP - General Family Practice 02/13/23
--- OUTSIDE RECORDS SUMMARY | 2025-02-22 13:21 | XMS_ITS | Clinical Summary ---
Author Organization [facility] Address [address] [place] [address] Care Team Providers Care Bar Attendant Name Role Phone Pcp Outside [facility], Unknown Primary Care Provider U navailable [...] negative. Positive results are reported to the [facility] Department of Public Health. The Aptima [...] l Result [place] [facility] [address] [place] [address] from Last 3 Months or Most Recently Relevant to Health Maintenance Insurance [facility] Member Subscriber Plan / Payer (Ef fective 2020-Present) Name:Sacha Pedraza Relation to Subscriber:Self Name:Sacha Pedraza Payer ID:Not on file Type:T19 HMO Address: [address] [address] [facility] Member Subscriber Plan / Payer (Ef fective 2020-Present) Name:Sacha Pedraza Relation to Subscriber:Self Name:Sacha Pedraza Payer ID:Not on file Type:T19 [facility] Address: [address] [place] [address] [employer] Member Subscriber Plan / Payer (Ef fective 2021-Present) Name:Sacha Pedraza Relation to Subscriber:Self Name:Sacha Pedraza Payer ID:Not on file Type:T19 Address: [address] [address] [place] [address] Care Teams Bar Attendant Relationship Specialty Start Date End Date Pcp Outside [facility], Unknown NO KNOWN ADDRESS ON FILE PCP - General 09/06/23
[2025-02-22] MEDS: SODIUM CHLORIDE 0.9% IV 1,000 ML 999 ML IV CONT (13:37)
[2025-02-22 13:52] LABS: Hematocrit 40.3 % (37.0-47.0); Hemoglobin 12.7 g/dL (12.0-15.0); Immature Granulocyte Percent A 0.1 % (0-0.5); Lymphocytes Absolute Auto 1.93 K/mm3 (0.9-3.2); Mean Corpuscular HGB Conc 31.5 g/dl (32-36); Mean Corpuscular Hemoglobin 26.9 pg (26-34); Mean Corpuscular Volume 85.4 fl (80-100); Nucleated Red Blood Cells Absolute Auto 0.000 K/mm3 (0.0-0.012); Nucleated Red Blood Cells Perc 0.0 % (0.0-0.2); Platelet Count Result 265 k/mm3 (150-375); Red Blood Count 4.72 M/mm3 (4.2-5.4); White Blood Count 7.5 K/mm3 (4.5-10.0)
[2025-02-22 13:55] LABS: Add Urine Microscopic? YES; Appearance Urine Cloudy (Clear); Glucose Urine UA Negative (Negative); Leukocyte Esterase Ur Negative LEU/UL (Negative); Nitrate Urine Negative (Negative); Non Pathogenic Casts 0-2; Specific Grav Ur 1.018 (1.001-1.035)
[2025-02-22 14:05] LABS: Alanine Aminotransferase 17 U/L (6-35); Albumin Level 4.5 g/dL (3.5-5.1); Alkaline Phosphatase 54 U/L (38-126); Anion Gap 10 mmol/L (4-12); Aspartate Amino Transferase 28 U/L (14-36); Bilirubin,Total 1.1 mg/dL (0.2-1.3); Blood Urea Nitrogen 6 mg/dL (7-17); Calcium 9.3 mg/dL (8.4-10.2); Carbon Dioxide 23 mmol/L (22-30); Chloride 105 mmol/L (98-107); Estimated CRCL calculation 144 ml/min; Estimated Glomerular Filt Rate > 60; Glucose 98 mg/dL (65-110); Lipase 79 U/L (23-300); Potassium 3.9 mmol/L (3.4-5.0); Sodium 138 mmol/L (137-145); Total Protein 8.6 g/dL (6.3-8.2)
[2025-02-22 14:11] LABS: BEDSIDEPREGUCG Negative (Negative)
== END 2025-02-22 15:53 | disposition home or self-care (01) ==
PROVIDERS: Emergency Provider Emergency Medicine
DX: R10.9 Unspecified abdominal pain (principal)
CPT/HCPCS: 36415; 74177; 80053; 81001; 81025; 83690; 85025; 96360; 99284; J7030; Q9967

== ENCOUNTER 2025-04-12 13:00 | Emergency (ER) | payer OTHER, SELFPAY ==
--- OUTSIDE RECORDS SUMMARY | 2025-04-11 14:40 | XMS_ITS ---
Author Organization Formerly [facility], later [facility] Address [address] [place] [address] Phone [phone] Care Team Providers Care Planetarium Technician Name Role Phone Junior OLIVASN Sanamjessica Primary Care Provider [phone] Varun Baron Unavailable [phone] Allergies Allergen (clinical drug ingredient) Drug/Non Drug Allergy documented on EMR Reaction Allergy Type Onset Date Status peanut allergenic extract Peanut (Diagnostic) Unknown Drug Allergy Active Shellfish (Crustacea n) - Crab Extract hives Allergy Active Eggs (Hen) - Egg Solids, Whole Unknown Allergy Active REASON FOR VISIT WRU Establish PCP Medications Medication SIG (Take, Route, Frequency, Duration) Notes Start Date End Date Diagnosis (ICD Code) Status Sertraline HCl 25 MG Tablet 1 tablet Orally Once a day; Duration: 30 days Take with 100 mg tablet 04/09/2025 Mood disorder (ICD_10 - F39) Active Sertraline HCl 100 MG Tablet 1 tablet Orally Once a day; Duration: 30 days Mood disorder (ICD_10 - F39) Active lamoTRIgine 25 MG Tablet 1 tablet once a day for 15 days, 2 tablets once a day for 15 days Orally; Duration: 30 days 04/01/2025 Mood disorder (ICD_10 - F39) Active hydrOXYzine Pamoate 25 MG Capsule 1-2 capsules Orally every 4 hours as needed for anxiety, agitation, or inability to sleep. Do not give within 4 hours of diphenhydramine.; Duration: 30 days 03/26/2025 Mood disorder (ICD_10 - F39) Active Melatonin 5 MG Tablet 1 tablet at bedtime as needed Orally Once a day; Duration: 30 days 03/26/2025 Routine general medical examination at a health care facility (ICD_10 - Z00.00) Active busPIRone HCl 7.5 MG Tablet 1 tablet Orally Twice a day; Duration: 30 days 04/09/2025 Mood disorder (ICD_10 - F39) Active Albuterol Sulfate 108 (90 Base) MCG/ACT Aerosol Powder Breath Activated 1 puff as needed Inhalation as needed 03/26/2025 Routine general medical examination at a health care facility (ICD_10 - Z00.00) Active traZODone HCl 100 MG Tablet 1 tablet at bedtime as needed Orally Once a day; Duration: 30 days Mood disorder (ICD_10 - F39) Active Multi Vitamin - Tablet 1 tablet Orally Once a day; Duration: 30 days 03/26/2025 Routine genera l medical examination at a health care facility (ICD_10 - Z00.00) Active Social History Tobacco Use: Social History Observation Description Date Details (start date - stop date) Never Smoker NA - NA Sex Observation Social History Observation Description Sex Observation Female Social History Miscellaneous Social Info Question Answer Notes Method of learning: Preferred method of learning: Discussion,Hearing Primary Social History Social Info Question Answer Notes Tobacco Use - do not use Tobacco Use: Status Reviewed with Patient Tobacco Use Status Reviewed on: 04/09/2025 Single Question Alcohol Screening How ma ny times in the past year have you had (4 for women, or 5 for men) or more drinks in a day? 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 Marijuana use: More than three times a day Drug use: Denies Alcohol use: Denies Problems Problem Type SNOMED Code ICD Code Dates Problem Status W/U Status Risk Notes Problem Overweight (491963005) Over weight (E66.3) Added On: Active confirmed Problem Brachial plexus disorder (5142893) Brachial plexus disorders (G54.0) Added On: Active confirmed Vital Signs Vital Sign Value Appt Date Weight 350 lbs 04/11/2025 Height 68 in 04/11/2025 BMI 53.21 kg/m2 04/11/2025 Blood pressure systolic 120 mm Hg 04/11/20 Blood pressure diastolic 76 mm Hg Heart Rate 68 /min 04/11/2025 Oximetry 99 % 04/11/2025 Respiratory Rate 18 /min 04/11/2025 Encounters Date Time Type Facility Location Provider Diagnosis 02:40 PM Office Visit, Est Pt., Level 4 ([address]404) [place] [address] [facility] [place] [address] Varun Baron Over weight E66.3 ; Adult general medical examination Z00.00 ; Diabetes mellitus screening Z13.1 and Brachial plexus disorders G54.0 Assessments Encounter Date Diagnosis (ICD Code) Assessment Notes Treatment Notes Section Notes 04/11/2025 Over weight (ICD-10 - E66.3) 04/11/2025 Adult general medical examination (ICD-10 - Z00.00) - The patient is not due for annual labs today. - The patient is up to date on preventative screenings, follow up with [facility] for annual WWE, pap, and mammogram. - The patient is UTD on vaccines, recommended annual flu vaccines and COVID boosters as appropriate - Discussed weight loss techniques including increased physical activity, healthy diet. Encouraged patient to aim for a goal of 150 minutes of moderate-intensity exercise and 2 days of strength training. Educated them on the importance of starting small and building on their successes. - Discussed healthier eating habits including frequent meals which are carb/protein balanced. Discussed avoidance of simple carbohydrates, encouraged portion-controlled complex carbohydrates. - Recommended increasing water intake and avoiding sugary beverages, excess caffeine and alcohol intake - Follow up in 1 year or sooner with any questions, concerns. - Patient denies any concerns with her plan of care. People verbalizes understanding and agrees to plan of care. 04/11/2025 Diabetes mellitus screening (ICD-10 - Z13.1) 04/11/2025 Brachial plexus disorders (ICD-10 - G54.0) Encouraged patient to follow up with providers at [facility] neurology for further treatment. Plan Of Treatment Treatment Notes Assessment Notes Adult general medical examination - The patient is not due for annual labs today. - The patient is up to date on preventative screenings, follow up with [facility] for annual WWE, pap, and mammogram. - The patient is UTD on vaccines, recommended annual flu vaccines and COVID boosters as appropriate - Discussed weight loss techniques including increased physical activity, healthy diet. Encouraged patient to aim for a goal of 150 minutes of moderate-intensity exercise and 2 days of strength training. Educated them on the importance of starting small and building on their successes. - Discussed healthier eating habits including frequent meals which are carb/protein balanced. Discussed avoidance of simple carbohydrates, encouraged portion-controlled complex carbohydrates. - Recommended increasing water intake and avoiding sugary beverages, excess caffeine and alcohol intake - Follow up in 1 year or sooner with any questions, concerns. - Patient denies any concerns with her plan of care. People verbalizes understanding and agrees to plan of care. Brachial plexus disorders Encouraged pat ient to follow up with providers at [facility] neurology for further treatment. Future Test Test Name Order Date Hemoglobin A1c CLIA Waived 04/11/2025 Next Appt Details Follow Up: 1 Year, Reason: Provider Name:Preethi Jovel, 04/23/2025 11:00:00 AM, [address], [address], Medical (General) History Medical History History ICD Code anxiety mood disorder major depressive disorder right arm - Brachial plexus Surgical History Surgery Date(Month/Year) leg surgery x2 right arm ride side neck Hospitalization History Reason Date(Month/Year) lakhani - stress 01/2025 Hospitalization at [facility] - 02/2025 [facility] 02/2025 Progress Notes * Deshawn CASTILLO:[birth year] (19 yo F)Acc No.[id number]:04/11/2025 UNLOCKED PROGRESS NOTE Progress Notes Patient: Sacha TEIXEIRA Provider: Perry Baron APN :2005 A ge:19 Y S ex:Female Date:04/11/2025 Address:[address], [address] , [facility] Pcp:Eliana Pacheco Check In:02:33 PM CSTCheck O ut:03:27 PM MUSIC DIRECTOR Subjective: * Chief Complaints: * 1 . WRU Establish PCP. * HPI: I nterim History: Emergency room visit N o. W as hospitalized N o.? D epression Screening: PHQ-9 L ittle interest or pleasure in doing things S everal days, F eeling down, depressed, or hopeless S everal days, T rouble falling or staying asleep, or sleeping too much N early every day, F eeling tired or having little energy Nearly every day, P oor appetite or overeating N early every day, F eeling bad about yourself or that you are a failure, or have let yourself or your family down M ore than half the days, T rouble concentrating on things, such as reading the newspaper or watching television?Several days, M oving or speaking so slowly that other people could have noticed; or the opposite, being so fidgety or restless that you have been moving around a lot more than usual N ot at all, T houghts that you would be better off or of hurting yourself in some way N ot at all, T otal Score 1 4, I nterpretation M oderate Depression. I ntervention?Depression Screening Findings P ositive, F ollow-Up for Depression P alberto is admitted to a [facility] unit where their mental health is monitored - unit nursing staff have access to this encounter note. S creening: Haskell Suicide Severity Rating Scale (LF) D o you want to initiate with S creener form, 1 . Wish to be : Have you wished you were or wished you could go to sleep and not wake up? N o, 2 . Suicidal Thoughts: Have you actually had any thoughts of killing yourself? N o, 6 . Suicide Behavior Question: Have you ever done anything,started to do anything, or prepared to end your life? N o, I nterpretation: L ow Risk. C SSRS Interpretation and Follow Up Plan: CSSRS Interpretation and Follow Up Plan C SSRS Screen documented using SF Y es, R isk Disposition from SF L ow - No Follow Up Plan Required, F ollow Up Plan N o Follow Up Plan required at this time., T imeframe of Screening T carlitos.? C onstitutional: Health Literacy B ased on interaction with patient, assessed patient to have .. S ummarino: A 19-year-old female/male presents to the office today to establish care and for their annual wellness exam. 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 Current medications: reviewed CC: They deny the need for any medication refills at this time. They report that they are up to date on their health maintenance. The patient denies any new issues at this time. Patient has a nuerology group at [facility] that is following her for her brachial plexus injury and is working on getting her dislocated shoulder fixed with them as well. The patient denies bowel, bladder, or sleep issues at this time. The patient endorses that they exercise less than 150 minutes per week. The patient's social history, surgical history, medical history, and family history have all been reviewed today. * ROS: G eneral/Constitutional: Fatigue d enies. S leep disturbance d enies. W eight loss d enies. O phthalmologic: Blurred vision d enies. E NT: Difficulty swallowing d enies. R inging in the ears?denies. R espiratory: Cough d enies. S hortness of breath at rest d enies. S hortness of breath with exertion d enies. W heezing d enies. C ardiovascular: Chest pain at rest d enies. C hest pain with exertion?denies. D yspnea on exertion d enies. I rregular heartbeat d enies. ? G astrointestinal: Abdominal pain d enies. B lood in stool d enies.?Change in bowel habits d enies. C onstipation d enies. H eartburn d enies.? M usculoskeletal: Comments R arm has brachial plexus injury from ..?Joint stiffness d enies. P ainful joints d enies. W eakness d enies. ? S kin: Rash d enies. N eurologic: Coordination g ood. M lei loss d enies. T ingling/Numbness d enies. * PSYCH ROS2: Depressed mood d enies. M ental or Physical abuse d enies. * Screening: * * Medical History: A nxiety, Mood disorder, Major depressive disorder, right arm - Brachial plexus. * Surgical History: l eg surgery x2 , right arm , ride side neck . * Hospitalization/Major Diagno stic Procedure: [facility] - 02/2025, [place], [place] [facility] [place] * Family History: F ather: unknown. M other: alive. 3 brother(s) , 3 sister(s) . . Mother - MYRON. * Social History: P rimary Social History: L iving Arrangement L iving Arrangement: Public Housing [address] on [address] .. A lcohol Use A lcohol Use Frequency: N ever. I llicit Substance Usage I llicit Substance Usage: Y es, S ubstance Used: C annabis. E mployment Status E mployment Status: U nemployed. T obacco Use - do not use T obacco Use: Delta michelle Reviewed with Patient, T obacco Use Status Reviewed on: 1 06/10/2024. S sam Question Alcohol Screening H ow many times in the past year have you had (4 for women, or 5 for men) or more drinks in a day??0. T obacco Use: T obacco Control (Standard) T obacco use: N onsmoker. M iscellaneous: M ethod of learning P referred method of learning: D iscussion,Hearing. 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 * Medications: T aking Sertraline HCl 100 MG Tablet 1 tablet Orally Once a day , Taking lamoTRIgine 25 MG Tablet 1 tablet once a day for 15 days, 2 tablets once a day for 15 days Orally , Taking hydrOXYzine Pamoate 25 MG Capsule 1-2 capsules Orally every 4 hours as needed for anxiety, agitation, or inability to sleep. Do not give within 4 hours of diphenhydramine. , Taking Melatonin 5 MG Tablet 1 tablet at bedtime as needed Orally Once a day , Taking Multi Vitamin - Tablet 1 tablet Orally Once a day , Taking Albuterol Sulfate 108 (90 Base) MCG/ACT Aerosol Powder Breath Activated 1 puff as needed Inhalation as needed , Taking traZODone HCl 100 MG Tablet 1 tablet at bedtime as needed Orally Once a day , Taking busPIRone HCl 7.5 MG Tablet 1 tablet Orally Twice a day , Taking Sertraline HCl 25 MG Tablet 1 tablet Orally Once a day Take with 100 mg tablet, Medication List reviewed and reconciled with the patient * Allergies: P eanut (Diagnostic), Eggs (Hen) - Egg Solids, Whole, Shellfish (Crustacean) - Crab Extract: hives. Objective: * Vitals: I nitials: KS, Wt:350, Ht: 68, BMI:53.21, BP:120/76, HR:68, Oxygen sat %:99, RR:18, LMP: 03/2025, Pain scale:0. * Examination: G eneral Examination: GENERAL APPEARANCE: w ell developed, well nourished. HEAD: n ormocephalic, atraumatic. EYES: e xtra ocular movements intact (EOMI), pupils equal, round, reactive to light and accommodation. EARS t ympanic membrane intact, clear, BOTH EARS. NOSE: n elizabeth patent. ORAL CAVITY: n ormal, missing teeth. THROAT: p harynx normal, tonsils normal. NECK/THYROID: n javier supple, full range of motion, no cervical lymphadenopathy. LYMPH NODES: n o palpable adenopathy. SKIN: n ormal, no rashes. HEART: r egular rate and rhythm, S1, S2 normal, no murmurs.? LUNGS: c lear to auscultation bilaterally, good air movement. ABDOMEN: s oft, nontender, nondistended, bowel sounds present, no masses palpable, no hepatosplenomegaly. EXTREMITIES: R upper extremity is weak compared to left due to brachial plexus injury from and having a chronically dislocated shoulder that was never fully corrected.. PERIPHERAL PULSES: n ormal. NEUROLOGIC: n onfocal. Assessment: * Assessment: 1. O lars weight - E66.3 2 . D iabetes mellitus screening - Z13.1 3 . A dult general medical examination - Z00.00 (Primary) 4 . B rachial plexus disorders - G54.0 Plan: * Treatment: 2. D iabetes mellitus screening L AB: Hemoglobin A1c CLIA Waived (Ordered for 04/11/2025) (Collection Date & Time - 04/11/2025) Value Reference Range H emoglobin A1c 5.2 4.0 - 6.4 % 3.?Brachial plexus disorders? Notes: Encouraged patient to follow up with providers at [facility] neurology for further treatment.?? * Procedure Codes: 3 008F BODY MASS INDEX DOCD * Preventive Medicine: Counseling: C are goal follow-up plan: B [facility] management provided Ari Landis Normal BMI Follow-up L yu education regarding diet. * Follow Up: 1 Year * * Electronic signature of Jeff Baron on 04/12/2025 at 01:53 PM MUSIC DIRECTOR Sign off status: Pending * Provider: Perry Baron APN Date: 06/12/2024 Generated for Nakul monge/Reginaldo/Westsmitting on: 06/13/2024 01:53 PM MUSIC DIRECTOR History and Physical Notes * HPI (History of Present Illness) Category c/o Denies Symptom Duration Details Notes Catego ry Notes Interim History Was hospitalized No Emergency room visit No Depression Screening PHQ-9 Little interest or pleasure in doing things: Several days Feeling down, depressed, or hopeless: Se veral days Trouble falling or staying asleep, or sl eeping too much: Nearly every day Feeling tired or having little energy: N early every day Poor appetite or overeating: Nearly ever y day Feeling bad about yourself o r that you are a failure, or have let yourself or your family down: More than half the days Trouble concentrating on thi ngs, such as reading the newspaper or watching television: Several days Moving or speaking so slowly that other people could have noticed; or the opposite, being so fidgety or restless that you have been moving around a lot more than usual: Not at all Thoughts that you would be b arlene off or of hurting yourself in some way: Not at all Total Score: 14 Interpretation: Moderate Depression Intervention Depression Screen ing Findings: Positive Follow-Up for Depression: Dilip morris is admitted to a [facility] unit where their mental health is monitored - unit nursing staff have access to this encounter note Constitutional Health Literacy Based on interaction with patient, assessed patient to have : . 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 They report that they are up to date on their health maintenance. The patient denies any new issues at this time.Patient has a nuerology group at [facility] that is following her for her brachial plexus injury and is working on getting her dislocated shoulder fixed with them as well.The patient denies bowel, bladder, or sleep issues at this time. The patient endorses that they exercise less than 150 minutes per week.The patient's social history, surgical history, medical history, and family history have all been reviewed today. Screening Haskell Suicid e Severity Rating Scale (LF) Do you want to initiate with : Screener form 1. Wish to be : Have you wished you were or wished you could go to sleep and not wake up?: No 2. Suicidal Thoughts: Have you actually had any thoughts of killing yourself?: No 6. Suicide Behavior Question: Have you ever done anything,started to do anything, or prepared to end your life?: No Interpretation:: Low Risk CSSRS Interpretation and Follow Up Plan CSSRS Interpretation and Follow Up Plan CSSRS Screen documented using SF: Yes Risk Disposition from SF: Low - No Follo w Up Plan Required Follow Up Plan: No Follow Up Plan requir ed at this time. Timeframe of Screening: Today Examination Category Field Details Notes Category Notes General Examination GENERAL APPEARANCE: well developed , well nourished HEAD: normocephalic, atrau matic EYES: extra ocular movemen ts intact (EOMI), pupils equal, round, reactive to light and accommodation EARS tympanic membrane in tact, clear, BOTH EARS NOSE: nares patent THROAT: pharynx normal, tons ils normal NECK/THYROID: neck supple, full ra nge of motion, no cervical lymphadenopathy HEART: regular rate and rhy thm, S1, S2 normal, no murmurs LUNGS: clear to auscultatio n bilaterally, good air movement ABDOMEN: soft, nontender, non distended, bowel sounds present, no masses palpable, no hepatosplenomegaly NEUROLOGIC: nonfocal SKIN: normal, no rashes EXTREMITIES: R upper extremity is weak compared to left due to brachial plexus injury from and having a chronically dislocated shoulder that was never fully corrected. PERIPHERAL PULSES: normal LYMPH NODES: no palpable adenopat hy ORAL CAVITY: normal, missing teet h
[2025-04-12 13:27] VITALS: BP 135/72; PULSE 86; RESP 16; TEMP 36.6; O2SAT 98
--- NOTE | 2025-04-12 13:29 | ED_ITS ---
HPI - Psych General Chief Complaint: Psychiatric Symptoms Stated Complaint: homicidal Time Seen by Provider: 04/12/25 13:10 Source: patient and EMS Mode of arrival: EMS History of Present Illness HPI Narrative: 19 YEARS OLD FEMALE CAME FROM [place] FOR PSYCH EVAL. PATIENT IS TELLING ME THAT SHE HAVE THOUGHTS OF HARMING PEOPLE BUT DOES NOT HAVE SPECIFIC PERSON OR SPECIFIC PLAN AND THIS BEEN GOING FOR THE LAST 2-3 YEARS. NOTHING NEW TODAY. SHE DENIES SUICIDAL IDEATION. HISTORY OF ANXIETY AND DEPRESSION, UNSPECIFIED SCHIZOPHRENIA Related Data Allergies Allergy/AdvReac Type Severity Reaction Status Date / Time Fish Containing Products Allergy Hives Verified 02/19/25 10:24 peanut Allergy Hives Verified 02/19/25 11:29 shellfish derived Allergy Hives Verified 02/19/25 11:29 Review of Systems 2 Review of Systems: All systems reviewed & are unremarkable except as noted in HPI and below PMFSH Social History Social History Substance use type: does not use Exam 2 Narrative: GENERAL APPEARANCE: WELL-DEVELOPED, WELL-NOURISHED SKIN: NORMAL COLOR HEAD: NORMOCEPHALIC, NONTRAUMATIC EYES: CLEAR CONJUNCTIVA ENT: OROPHARYNX NORMAL, EARS NORMAL, NOSE NORMAL NECK: SUPPLE, NONTENDER CHEST AND RESPIRATORY: AIRWAY PATENT, NO RESPIRATORY DISTRESS, NO ACCESSORY MUSCLE USE HEART: REGULAR RATE/RHYTHM ABDOMEN: SOFT, NONTENDER, NO ORGANOMEGALY, QUIET BOWEL SOUNDS VASCULAR: NORMAL PERIPHERAL PULSES, NORMAL CAPILLARY REFILL. MUSCULOSKELETAL: NORMAL RANGE OF MOTION, NONTENDER BACK NEUROLOGIC: ALERT AND ORIENTED ?3, COMPUTER TECHNICAL SPECIALIST IS NORMAL TESTED, NO GROSS MOTOR DEFICIT Course Vital Signs Vital signs: Vital Signs Temperature 36.6 C 04/12/25 13:27 Pulse Rate 86 04/12/25 13:27 Respiratory Rate 16 04/12/25 13:27 Blood Pressure 135/72 04/12/25 13:27 Pulse Oximetry 98 04/12/25 13:27 Oxygen Delivery Room Air 04/12/25 13:27 Temperature 36.6 C 04/12/25 13:27 Pulse Rate 86 04/12/25 13:27 Respiratory Rate 16 04/12/25 13:27 Blood Pressure 135/72 04/12/25 13:27 Pulse Oximetry 98 04/12/25 13:27 Oxygen Delivery Room Air 04/12/25 13:27 MDM MDM Narrative Medical decision making narrative: PATIENT CAME WITH HOMICIDAL THOUGHTS VITAL SIGNS ARE STABLE STABLE PHYSICAL EXAMINATION AND REMARKABLE DIFFERENTIAL DIAGNOSIS ANXIETY, DEPRESSION, PSYCHOSIS BLOOD WORKUP TODAY SHOWED INSIGNIFICANT ABNORMALITIES PATIENT IS MEDICALLY CLEAR FOR PSYCH EVALUATION CURRENTLY PATIENT DENYING ANY SUICIDAL OR HOMICIDAL IDEATION OR THOUGHTS. AND WOULD LIKE TO GO BACK TO THE SCHOOL CAMP[facility]. THE PT WAS DISCHARGED TO HOME.THE PT,S CONDITION UPON DISCHARGE WAS FAIR,EDUCATION WAS PROVIDED TO THE PT IN REFERENCE TO THE FINAL IMPRESSION,DISCHARGE STUDY RESULTS,TREATMENT,PROGNOSIS AND NEED FOR FOLLOW UP . Differential Diagnosis Differential Diagnosis: ABOVE Lab Data [facility] Lab Attestation statement: I personally reviewed the patient's lab results. 04/12/25 14:32 04/12/25 14:32 Labs: Lab Results 04/12/25 04/12/25 04/12/25 Range/Units 14:14 14:32 15:43 WBC 6.3 (4.5-10.0) K/mm3 RBC 4.65 (4.2-5.4) M/mm3 Hgb 12.7 (12.0-15.0) g/dL Hct 40.2 (37.0-47.0) % MCV 86.5 (80-100) fl MCH 27.3 (26-34) pg MCHC 31.6 L (32-36) g/dl RDW 14.0 (11.5-14.5) % Plt Count 281 (150-375) k/mm3 MPV 10.3 (7.4-10.4) fl Immature Gran % (Auto) 0.3 (0-0.5) % Neut % (Auto) 61.7 (45.5-73.1) % Lymph % (Auto) 25.8 (18.3-44.2) % Kenton % (Auto) 8.6 H (2.6-8.5) % Eos % (Auto) 3.0 (0-4.4) % Baso % (Auto) 0.6 (0.2-1.2) % Lymph # (Auto) 1.63 (0.9-3.2) K/mm3 Kenton # (Auto) 0.5 (0.1-0.6) K/mm3 Eos # (Auto) 0.2 (0-0.3) K/mm3 Baso # (Auto) 0.0 (0.0-0.1) K/mm3 Abs Immat Gran (auto) 0.02 (0.00-0.031) K/mm3 Absolute Neuts (auto) 3.9 (1.3-6.7) K/mm3 Absolute Nucleated RBC 0.000 (0.0-0.012) K/mm3 Nucleated RBC % 0.0 (0.0-0.2) % Sodium 139 (137-145) mmol/L Potassium 3.9 (3.4-5.0) mmol/L Chloride 104 (98-107) mmol/L Carbon Dioxide 24 (22-30) mmol/L Anion Gap 11 (4-12) mmol/L BUN 10 (7-17) mg/dL Creatinine 0.99 (0.7-1.0) mg/dL Estim Creat Clear Calc Not Reportable Estimated GFR > 60 (59 - ) Glucose 87 (65-110) mg/dL POC Capillary Glucose 104 (65-105) mg/dl Calcium 9.6 (8.4-10.2) mg/dL Total Bilirubin 0.9 (0.2-1.3) mg/dL AST 35 (14-36) U/L ALT 30 (6-35) U/L Alkaline Phosphatase 77 (38-126) U/L Total Protein 9.0 H (6.3-8.2) g/dL Albumin 4.5 (3.5-5.1) g/dL TSH 1.820 (0.465-4.680) uIU/mL Urine Color Yellow (Yellow) Urine Appearance Clear (Clear) Urine pH 5.5 (5.0-9.0) Ur Specific Willet 1.027 (1.001-1.035) Urine Protein Negative (Negative) mg/dL Urine Glucose (UA) Negative (Negative) mg/dL Urine Ketones 3+ H (Negative) mg/dL Ur Blood (Man) Negative (Negative) Urine Nitrate Negative (Negative) Urine Bilirubin Negative (Negative) Urine Urobilinogen 1.0 (<2.0) mg/dL Leukocyte Esterase Rfl Negative (Negative) JAMSHID/UL POC Urine HCG, Qual (Negative) Urine Opiates Screen Negative (Negative) Urine Methadone Screen Negative (Negative) Ur Barbiturates Screen Negative (Negative) Ur Phencyclidine Scrn Negative (Negative) Ur Amphetamine Screen Negative (Negative) U Benzodiazepines Scrn Negative (Negative) Urine Cocaine Screen Negative (Negative) U Cannabinoids Screen Positive A (Negative) Ethyl Alcohol < 10 (<10) mg/dL 04/12/25 Range/Units 15:47 WBC (4.5-10.0) K/mm3 RBC (4.2-5.4) M/mm3 Hgb (12.0-15.0) g/dL Hct (37.0-47.0) % MCV (80-100) fl MCH (26-34) pg MCHC (32-36) g/dl RDW (11.5-14.5) % Plt Count (150-375) k/mm3 MPV (7.4-10.4) fl Immature Gran % (Auto) (0-0.5) % Neut % (Auto) (45.5-73.1) % Lymph % (Auto) (18.3-44.2) % Kenton % (Auto) (2.6-8.5) % Eos % (Auto) (0-4.4) % Baso % (Auto) (0.2-1.2) % Lymph # (Auto) (0.9-3.2) K/mm3 Kenton # (Auto) (0.1-0.6) K/mm3 Eos # (Auto) (0-0.3) K/mm3 Baso # (Auto) (0.0-0.1) K/mm3 Abs Immat Gran (auto) (0.00-0.031) K/mm3 Absolute Neuts (auto) (1.3-6.7) K/mm3 Absolute Nucleated RBC (0.0-0.012) K/mm3 Nucleated RBC % (0.0-0.2) % Sodium (137-145) mmol/L Potassium (3.4-5.0) mmol/L Chloride (98-107) mmol/L Carbon Dioxide (22-30) mmol/L Anion Gap (4-12) mmol/L BUN (7-17) mg/dL Creatinine (0.7-1.0) mg/dL Estim Creat Clear Calc Estimated GFR (59 - ) Glucose (65-110) mg/dL POC Capillary Glucose (65-105) mg/dl Calcium (8.4-10.2) mg/dL Total Bilirubin (0.2-1.3) mg/dL AST (14-36) U/L ALT (6-35) U/L Alkaline Phosphatase (38-126) U/L Total Protein (6.3-8.2) g/dL Albumin (3.5-5.1) g/dL TSH (0.465-4.680) uIU/mL Urine Color (Yellow) Urine Appearance (Clear) Urine pH (5.0-9.0) Ur Specific Willet (1.001-1.035) Urine Protein (Negative) mg/dL Urine Glucose (UA) (Negative) mg/dL Urine Ketones (Negative) mg/dL Ur Blood (Man) (Negative) Urine Nitrate (Negative) Urine Bilirubin (Negative) Urine Urobilinogen (<2.0) mg/dL Leukocyte Esterase Rfl (Negative) JAMSHID/UL POC Urine HCG, Qual Negative (Negative) Urine Opiates Screen (Negative) Urine Methadone Screen (Negative) Ur Barbiturates Screen (Negative) Ur Phencyclidine Scrn (Negative) Ur Amphetamine Screen (Negative) U Benzodiazepines Scrn (Negative) Urine Cocaine Screen (Negative) U Cannabinoids Screen (Negative) Ethyl Alcohol (<10) mg/dL Critical Care Time Critical Care Time Critical Care Time: No Discharge Plan Discharge Clinical Impression: Depression Patient Disposition: Home Condition: Stable Instructions: Depression (ED) Additional Instructions: RETURN IF SYMPTOMS ARE WORSENING , CALL YOUR FAMILY PHYSICIAN FOR APPOINTMENT, TAKE TYLENOL NEEDED FOR ACHES AND PAIN, CONTINUE HOME MEDICATIONS. Patient Language: Kosovan Prescriptions: No Action cephalexin 500 mg capsule 500 mg PO Q12H 7 Days Qty: 14 0RF albuterol sulfate 90 mcg/actuation HFA aerosol inhaler 1 inh inhalation QID PRN (Reason: shortness of breath or wheezing) Qty: 6.7 0RF prednisone 50 mg tablet 50 mg PO DAILY 5 Days Qty: 5 0RF amoxicillin-pot clavulanate 875-125 mg tablet 1 tablet PO Q12H Qty: 14 0RF azithromycin 250 mg tablet See Rx Instructions .ROUTE .COMPLEX Qty: 6 0RF Rx Instructions: For 250 mg dose pack: take 500 mg today (day 1), then 250 mg for 4 days (days 2-5) Follow-up/Referrals: UNKNOWN,DOCTOR [Non-Staff]
--- OUTSIDE RECORDS SUMMARY | 2025-04-12 13:53 | XMS_ITS | Clinical Summary ---
Author Organization [facility] Address [address] [place] [address] Care Team Providers Care Aircraft Magneto Mechanic Name Role Phone Pcp Outside [facility], Unknown Primary Care Provider U navailable Allergies [...] negative. Positive results are reported to the [facility] Department of Public Health. The Aptima [...] l Result [facility] [place] [facility] [address] [place] [address] from Last 3 Months or Most Recently Relevant to Health Maintenance Insurance [facility] Member Subscriber Plan / Payer (Ef fective 2020-Present) Name:Sacha Pedraza Relation to Subscriber:Self Name:Sacha Pedraza Payer ID:Not on file Type:[id number] HMO Address: [address] [address] [facility] Member Subscriber Plan / Payer (Ef fective 2020-Present) Name:Sacha Pedraza Relation to Subscriber:Self Name:Sacha Pedraza Payer ID:Not on file Type:[id number] [facility] Address: [address] [place] [address] [employer] Member Subscriber Plan / Payer (Ef fective 2021-Present) Name:Sacha Pedraza Relation to Subscriber:Self Name:Sacha Pedraza Payer ID:Not on file Type:[id number] Address: [address] [address] [place] [address] Care Teams Aircraft Magneto Mechanic Relationship Specialty Start Date End Date Pcp Outside [facility], Unknown NO KNOWN ADDRESS ON FILE PCP - General 09/06/23
--- OUTSIDE RECORDS SUMMARY | 2025-04-12 13:53 | XMS_ITS | Clinical Summary ---
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
--- OUTSIDE RECORDS SUMMARY | 2025-04-12 13:53 | XMS_ITS | Clinical Summary ---
Author Organization [facility] Address [address] [place] [address] Care Team Providers Care Technical Sales Director Name Role Phone Unavailable Primary Care Provider Unavailabl e Immunizations Immunization Administration Dates Next Due Pfizer SARS-CoV-2 COVID-19, mRNA, LNP-S, preservative free 04/09/2021 Social History Tobacco Use Types Packs/Day Years Used Date Smoking Tobacco: Never Assessed Comments Unknown Sex and Gender Information Value Date Recorded Sex Assigned at Not on file Legal Sex Female 9:37 PM EST Gender Identity Not on file Sexual Orientation Not on file Plan of Treatment Health Maintenance Due Date Last Done Comments Gonorrhea/Chlamydia Screening 2004 Varicella Vaccines (1 of 2 - 13+ 2-dose series) 2017 HPV Vaccines (1 - 3-dose series) 12/25/2019 Meningococcal B Vaccine (1 o f 2 - Standard) 2020 DTaP,Tdap,and Td Vaccines (1 - Tdap) 12/25/2023 Hepatitis B Vaccines (1 of 3 - 19+ 3-dose series) 12/25/2023 Depression Screening 04/24/2024 COVID-19 Vaccine (2 - 2024-2 6 season) 2024 04/09/2021 Influenza Vaccine (#1) 2024 Annual Well Child Visit (3-2 1 years old) 03/06/2025 HIV Screening 03/06/2025 Hepatitis C Screening 03/06/2025 Social Influencers of Health Screening 03/06/2025 RSV Immunization Adult Patie nts (1 - 1-dose 75+ series) 12/25/2079 HIB Vaccines Aged Out No longer eligi ble based on patient's age to complete this topic Hepatitis A Vaccines Aged Out No long er eligible based on patient's age to complete this topic IPV Vaccines Aged Out No longer eligi ble based on patient's age to complete this topic MMR Vaccines Aged Out No longer eligi ble based on patient's age to complete this topic Meningococcal ACWY Vaccine Aged Out N o longer eligible based on patient's age to complete this topic Pneumococcal Vaccine: Pediat rics (0 to 5 Years) and At-Risk Patients (6 to 49 Years) Aged Out No longer eligi ble based on patient's age to complete this topic RSV Immunization Patients Un victor m 20 months Aged Out No longer eligible b ased on patient's age to complete this topic
--- OUTSIDE RECORDS SUMMARY | 2025-04-12 13:53 | XMS_ITS | Clinical Summary ---
Author Organization [facility] Address [address] [place] [address] Care Team Providers Care Woven Label Designer Name Role Phone Primo Min FASHION MERCHANDISER Primary Care Provider [phone] Source Comments You are receiving this document as you are listed as the PCP, follow-upprovider, or the patient hasbeen referred to you for consultation. This is incompliance with [facility] Transitions of Care Requirement. Note: Specific treatmentrecords and notes about services for mental health, developmental disabilities,alcoholism, drug dependence, or substance abuse, you will need to contact theMedical Records Department at [phone] and complete a separate Release ofAuthorization form. They are also available to answer other questions.[facility] Allergies No known active allergies Medications [...] 08/30/2023 Right arm weakness Brachial plexopathy, congenital Social History Tobacco Use Types Packs/Day Years [...] place to sleep or slept in a assisted (including now)? No 10/18/2023 Sex and Gender [...] ANNUAL DEPRESSION SCREENING,ADULT 07/31/2024 08/01/2023 Covid-19 Vaccine (2024-2 6 season) 2024 04/09/2021 INFLUENZA VACCINE (#1) [...] age to complete this topic Care Teams Woven Label Designer Relationship Specialty Start Date End Date Primo Min NP [address] [place] [address] PCP - General Family Practice 02/13/23
--- OUTSIDE RECORDS SUMMARY | 2025-04-12 13:54 | XMS_ITS | Patient Health Record ---
Author Organization [facility] Address [address] [place] [address] Phone [phone] Care Team Providers Care Monologist Name Role Phone Junior OLIVASNEliana Primary Care Provider Varun Baron Unavailable Arcelia Peres Unavailable [phone] Preethi Jovel Unavailable [phone] Allergies Allergen (clinical drug ingredient) Drug/Non Drug Allergy documented on EMR Reaction Allergy Type Onset Date Status peanut allergenic extract Peanut (Diagnostic) Unknown Drug Allergy Active Shellfish (Crustacea n) - Crab Extract hives Allergy Active Eggs (Hen) - Egg Solids, Whole Unknown Allergy Active Results Component Value Reference Range Flag Notes Hemoglobin A1c CLIA Waived ( Not yet reviewed by provider) Order date: 04/11/2025 Interpretation: Performing Lab: Notes/Report: Hemoglobin A1c 5.2 4.0 - 6.4 % 14 Panel Urine Drug Screen Order date: 03/26/2025 Reviewed date:03/26/2025 11:45:22 AM Interpretation: Performing Lab: Notes/Report: THC pos INES neg MOP (OPI) neg AMP neg MET neg BAR neg BZO neg MDMA neg MTD neg OXY neg PCP neg BUP neg TCA neg FTY neg CBC With Differential/Platel et* Order date: 03/26/2025 Reviewed date:04/01/2025 09:17:30 AM Interpretation:Normal [facility]forming [facility] [address] [facility], Phone - [phone], [facility] Notes/Report: WBC 5.5 3.4-10.8 x10E3/uL RBC 4.63 3.77-5.28 x10E6/uL Hemoglobin 12.7 11.1-15.9 g/dL Hematocrit 40.7 34.0-46.6 % MCV 88 79-97 fL MCH 27.4 26.6-33.0 pg MCHC 31.2 31.5-35.7 g/dL L RDW 12.8 11.7-15.4 % Platelets 211 150-450 x10E3/uL Neutrophils 49 Not Estab. % Lymphs 34 Not Estab. % Monocytes 11 Not Estab. % Eos 5 Not Estab. % Basos 1 Not Estab. % Neutrophils (Absolute) 2.7 1.4-7.0 x10E3/uL Lymphs (Absolute) 1.9 0.7-3.1 x10E3/uL Monocytes(Absolute) 0.6 0.1-0.9 x10E3/uL Eos (Absolute) 0.3 0.0-0.4 x10E3/uL Baso (Absolute) 0.0 0.0-0.2 x10E3/uL Immature Granulocytes 0 Not Estab. % Immature Grans (Abs) 0.0 0.0-0.1 x10E3/uL CMP 14 Comprehensive Metabol ic Panel* Order date: 03/26/2025 Reviewed date:04/01/2025 09:17:30 AM Interpretation:Normal Performing Lab:[facility], [address] [facility], Phone - [phone], Director - [facility] Notes/Report: Glucose 84 70-99 mg/dL BUN 6 6-20 mg/dL Creatinine 0.96 0.57-1.00 mg/dL eGFR 87 >59 mL/min/1.73 BUN/Creatinine Ratio 6 9-23 L Sodium 139 134-144 mmol/L Potassium 4.1 3.5-5.2 mmol/L Chloride 102 96-106 mmol/L Carbon Dioxide, Total 22 20-29 mmol/L Calcium 9.5 8.7-10.2 mg/dL Protein, Total 7.0 6.0-8.5 g/dL Albumin 4.2 4.0-5.0 g/dL Globulin, Total 2.8 1.5-4.5 g/dL Bilirubin, Total 0.4 0.0-1.2 mg/dL Alkaline Phosphatase 63 42-106 IU/L AST (SGOT) 14 0-40 IU/L ALT (SGPT) 10 0-32 IU/L QuantiFERON-TB Gold Plus ([id number]) Order date: 03/26/2025 Reviewed date:04/01/2025 09:17:29 AM Interpretation:Normal Performing Lab[facility], [address] [facility], Phone - [phone], Director - Ryann Notes/Report: QuantiFERON Incubation Incubation performed. QuantiFERON-TB Gold Plus Negative Negative No response to M tuberculosis antigens detected. Infection with M tuberculosis is unlikely, but high risk individuals should be considered for additional testing (ATS/IDSA/CDC Clinical Practice Guidelines, 2017). The reference range is an Antigen minus Nil result of <0.35 IU/mL. Chemiluminescence immunoassay methodology QuantiFERON Criteria QuantiFERON-TB Gold Plus is a qualitative indirect test for M tuberculosis infection (including disease) and is intended for use in conjunction with risk assessment, radiography, and other medical and diagnostic evaluations. The QuantiFERON-TB Gold Plus result is determined by subtracting the Nil value from either TB antigen (Ag) value. The Mitogen tube serves as a control for the test. QuantiFERON TB1 Ag Value 0.08 QuantiFERON TB2 Ag Value 0.05 QuantiFERON Nil Value 0.06 QuantiFERON Mitogen Value >10.00 Test, Urine Order date: 03/26/2025 Reviewed date:03/26/2025 11:44:54 AM Interpretation: Performing Lab: Notes/Report: Test, Urine neg Negative - Negative Breathalyzer Order date: 03/26/2025 Reviewed date:03/26/2025 12:05:48 PM Interpretation: Performing Lab: Notes/Report: LINDA 0.000 Reason For Referral No Information Medications Medication SIG (Take, Route, Frequency, Duration) Notes Start Date End Date Diagnosis (ICD Code) Status busPIRone HCl 7.5 MG Tablet 1 tablet Orally Twice a day; Duration: 30 days 04/09/2025 Mood disorder (ICD_10 - F39) Active Sertraline HCl 25 MG Tablet 1 tablet [...] days Mood disorder (ICD_10 - F39) Active Sertraline [...] health care facility (ICD_10 - Z00.00) Active Multi Vitamin - Tablet 1 tablet Orally Once a day; Duration: 30 days 03/26/2025 Routine genera l medical examination at a health care facility (ICD_10 - Z00.00) Active Social History Tobacco Use: Social History Observation Description Date Details (start date - stop date) Never Smoker NA - NA Sex Observation Social History Observation Description Sex Observation Female SDOH Assessments Date Tool Assessment Assessment LOINC Value Assessment Notes Goals Interventions 025 PRAPARE (LOINC: 80922-4 ) Total Score: 6 Please specify Case Management Assessment First Visit Date Completed/Updated: 03/26/2025 What is your current housing situation? 28916-4 I have housing (ZI81643-7) Are you worried about losing your housing? 96727-3 Yes (LA33-6) What is the highest level of school that you have finished? 30606-5 More than high school (QZ59504-0) What is your current work situation? 07232-1 Otherwise unemployed but not seeking work (ex. student, retired, disabled, unpaid primary director long term care) (LD34489-6) In the past year, have you o r any family members you live with been unable to get any of the following when it was really needed? Check all that apply 75708-5 I do not have problems meeting my needs Has lack of transportation k ept you from medical appointments, meetings, work or from getting things needed for daily living? 31559-8 Yes, it has kept me from medical appointments or from getting my medications (XS68559-7) How often do you see or talk to people that you care about and feel close to? (For example: talking to friends on the phone, visiting friends or family, going to methodist or club meetings) 22978-7 3 to 5 times a week (LW25620-8) How stressed are you? Stress is when someone feels tense, nervous, anxious, or can\t sleep at night because their mind is troubled 16804-5 A little bit (LW86436-5) In the past year have you sp ent more than 2 nights in a row in a correction, correction, senior living center, or juvenile correctional facility? 46222-3 No (LA32-8) Do you feel physically and e motionally safe where you currently live? 77034-1 Yes (LA33-6) In the past year, have you b een afraid of your partner or ex-partner? 77238-8 No (LA32-8) Are you a refugee? I choose not to answer this question What country are you from? I choose not to answer this question PRAPARE Score: 6 Enabling Services Provided? Yes Social History Miscellaneous Social Info Question Answer [...] Problem Status W/U Status Risk Notes Problem Brachial plexus disorder (2335671) Brachial plexus disorders (G54.0) Added On: 025 Active confirmed Problem Obesity (830756881) Obesity (E66.9) Added On: 025 Active confirmed Problem Mood disorder (76717875) Mood disorder (F39) Added On: 025 Active confirmed Problem Overweight (157526034) Over weight (E66.3) Added On: 025 Active confirmed Problem Mental health problem (655799641) Mental health problem (F48.9) Added On: 025 Active confirmed Vital Signs Vital Sign Value Notes Appt Date Heart Rate 68 /min 04/11/2025 Temperature 97.2 degrees Fahrenheit 06/2024 Respiratory Rate 18 /min 04/11/2025 Oximetry 99 % 04/11/2025 Blood pressure diastolic 76 mm Hg Height 68 in 04/11/2025 Blood pressure systolic 120 mm Hg 03/24 Weight 350 lbs 04/11/2025 BMI 53.21 kg/m2 04/11/2025 Encounters Date Time Type Facility Location Provider Diagnosis 04/11/20 02:40 PM Office Visit, Est Pt., Level 4 (98015) [facility] [address] [place] [address] Varun Baron Over weight E66.3 ; Adult general medical examination Z00.00 ; Diabetes mellitus screening Z13.1 and Brachial plexus disorders G54.0 03/26/20 25 11:00 AM Office Visit, New Pt., Level 2 (90719) [facility] [place] [address] Eliana Pacheco Routine general medical examination at a health care facility Z00.00 03/26/20 25 12:40 PM Office Visit [facility] [place] [address] Arcelia Peres Over weight E66.3 and Mental health problem F48.9 04/01/20 25 10:00 AM Telehealth Office Visit, Est Pt., Level 4 (55833) [facility] [address] [place] [address] Preethi Junge Mood disorder F39 04/09/20 25 09:00 AM Telehealth Office Visit, Est Pt., Level 4 (15504) [address] [address] Preethi Junge Mood disorder F39 Assessments Encounter Date Diagnosis (ICD Code) Assessment Notes Treatment Notes Section Notes 03/26/2025 Routine general medical examination at a health care facility (ICD-10 - Z00.00) Admit to the crisis unit for 24-hour observation and initiate standing/protocol orders: The following PRN medications may be self-administered by patients under the supervision of approved staff or administered by nursing staff: Ibuprofen 200mg, 2-4 tablets by mouth (with food) every 6 hours as needed for pain (unless on lithium). (NOTE: Ibuprofen and acetaminophen may be given together, but alternating is recommended for continuous pain relief. Guaifenesin 400 mg, 1 tablet by mouth every four hours as needed for cough and chest congestion (take with large glass of water). Loratadine 10 mg, 1 tablet by mouth daily as needed for allergies, watery itchy eyes, or sinus drainage. Throat Lozenges, up to 4 tablets by mouth every three to four hours as needed for sore throat. Antacid tablets, 1-2 tablets by mouth every one to two hours as needed for indigestion or heart burn. If the client prefers liquid, could use: Liquid Antacid : 1 ounce by mouth up to four times daily as needed for indigestion or heartburn Omeprazole 20mg, 1 capsule by mouth once daily for 14 days for frequent heartburn (frequent heartburn is more than 2 episodes per week). Do not exceed 14 days. Do not give to client already taking a proton-pump inhibitor: esomeprazole (Nexium), lansoprazole (Prevacid), pantoprazole (Protonix), rabeprazole (Aciphex), dexlansoprazole (Dexilant) Zofran ODT disintegrating (under the tongue) 4 mg, 1-2 tablets every 8 hours as needed for nausea/vomiting. Milk of Magnesia (MOM): 1 ounce (30 milliliters) by mouth every day as needed for constipation. OR Miralax: Stir and fully dissolve 17 grams (1 packet or 1 capful to measured line) in any 4 to 8 ounces of beverage then drink once daily for constipation. Do not use for more than 7 days. OR Docusate 100 mg, 1 capsule twice daily as needed for constipation Hydrocortisone 1% Cream, apply topically (to the skin) to the affected area up to three times daily as needed for itching or inflammation (avoid eyes and genitals). 2% Antifungal Cream, apply topically (to the skin) as directed as needed to affected areas for athlete's foot or jock itch. Triple Antibiotic Ointment, apply topically (to the skin) up to three times daily as needed for minor cuts and scrapes. Carmex or Chapstick, apply topically (to the skin) as needed for chapped lips and skin. Orajel, apply to affected areas as needed for mouth or tooth pain. Lubricating Eye Drops, instill 1-2 drops to the affected eye(s) as needed for dry/irritated eye(s). Hemorrhoid medications, apply to affected area according to directions as needed for hemorrhoid discomfort and itch. Nix (Permethrin 1%) cream 2 ounces, apply topically (to the skin) as directed as needed for head lice. Sunscreen 30 SPF, Apply to exposed skin prior to exposure to sun. The following PRN medications must be approved by nursing staff before self-administration by patients: Diphenhydramine 25 mg, 2 tablets by mouth every 4 hours as needed for allergic reaction or itchy rash. Caution: Do not use hydroxyzine within 4 hours of diphenhydramine and vice versa. Loperamide 2 mg capsules, may give two capsules by mouth for the initial dose, followed by one capsule up to 3 times a day as needed for diarrhea. Acetaminophen 500 mg, 1 - 2 tablets by mouth every six hours as needed for pain. (NOTE: Ibuprofen and acetaminophen may be given together, but alternating is recommended for continuous pain relief). Oxygen-May administer oxygen 2L/min via nasal cannula if O2 saturation is less than 92%, AND client complains of shortness of breath. Target O2 saturation is 94-98%. Caution: Remember too much oxygen can be detrimental to a client with COPD. Oxygen is a drug and should be delivered by trained staff only. Nurses may remove superficial splinters and sutures from skin lacerations. May apply gauze or bandages to any weeping wounds. Contact nursing if there is pus, a foul odor, increased pain/redness/swelling, or if soaking through bandages. Routine physical performed to be admitted to the CRU. No acute symptoms or concerns reported. Patient attends [employer] and recently had a hospitalization at [facility]. No history of substance use except for marijuana, which is used more than three times daily. 03/26/2025 Over weight (ICD-10 - E66.3) 04/01/2025 Mood disorder (ICD-10 - F39) 04/09/2025 Mood disorder (ICD-10 - F39) 04/11/2025 Over weight (ICD-10 - E66.3) 04/11/2025 Diabetes mellitus screening (ICD-10 - Z13.1) 04/11/2025 Adult general medical examination (ICD-10 - Z00.00) - The patient is not due for annual labs today. - The patient is up to date on preventative screenings, follow up with [employer] for annual WWE, pap, and mammogram. - [...] understanding and agrees to plan of care. 03/26/2025 Mental health problem (ICD-10 - F48.9) 04/11/2025 Brachial plexus disorders (ICD-10 - G54.0) Encouraged patient to follow up with providers at [facility] for further treatment. 03/26/2025 Other Clinician met w ith client to assess needs for residential services. Clinician gathered information regarding historical presentation of mental health and substance use symptoms including withdrawal, HIV Risk assessment, psychiatric hospitalization history and presenting concern. Clinician conducted PHQ9 and CSSRS assessments as well as social drivers of health screening for the purposes of identifying additional service needs. 04/01/2025 Other May self-administer medications or be administered own oral medications per [facility] protocols. Provided informed consent with understanding of side effects, adverse effects, risks and benefits as well as alternative treatments as previously discussed and with the above recommended medications & other aspects of the treatment program. Agrees to return sooner if symptoms worsen or suicidal or homicidal ideations occur. Medication Plan: Increasing seroquel to 100 mg for sleep Adding lamotrigine for mood stabilization [] Rx phoned into pharmacy [x] Rx faxed/e-prescribed into pharmacy [] PDMP Reviewed [] [facility] Reviewed [] Labs ordered Encouraged by Preethi Jovel [facility]- to: [x] consider utilizing therapist/counselor/so cial worker/psychologist, referral given [] continue with therapist/counselor/so cial worker/psychologist Psychoeducation: Treatment options discussed in detail with patient/guardian verbalizing understanding of treatment rationales. Side effects and benefits of all medications prescribed discussed at length between psychiatric prescribing provider and patient/guardian along with the risks associated of gvpq-tz-edsk interactions, including but not limited to prescription medications, OTC medications, vitamins, minerals and herbal supplements. Patient/Guardian and provider dialogue showcased verbalized understanding from patient on rationales of medication risk vs benefits. Information with neurobiology of presenting neurotransmitter disorder, mood stability, sleep hygiene and 7-8 hours of uninterrupted sleep per night with wakeful and refreshed awakening and day long alertness discussed. Reduction of stress and anxiety to aid in focus and concentration discussed, again, with patient/guardian physically nodding, voicing understanding, and engaged [facility] 04/09/2025 Other May self-administer medications or be administered own oral medications per [facility] protocols. Provided informed consent with understanding of side effects, adverse effects, risks and benefits as well as alternative treatments as previously discussed and with the above recommended medications & other aspects of the treatment program. Agrees to return sooner if symptoms worsen or suicidal or homicidal ideations occur. [] Rx phoned into pharmacy [x] Rx faxed/e-prescribed into pharmacy [] PDMP Reviewed [] [facility] Reviewed [] Labs ordered Encouraged by Preethi Jovel [facility] to: [x] consider utilizing therapist/counselor/so cial worker/psychologist, referral given [] continue with therapist/counselor/so cial worker/psychologist Psychoeducation: Treatment options discussed in detail with patient/guardian verbalizing understanding of treatment rationales. Side effects and benefits of all medications prescribed discussed at length between psychiatric prescribing provider and patient/guardian along with the risks associated of sond-ac-fgle interactions, including but not limited to prescription medications, OTC medications, vitamins, minerals and herbal supplements. Patient/Guardian and provider dialogue showcased verbalized understanding from patient on rationales of medication risk vs benefits. Information with neurobiology of presenting neurotransmitter disorder, mood stability, sleep hygiene and 7-8 hours of uninterrupted sleep per night with wakeful and refreshed awakening and day long alertness discussed. Reduction of stress and anxiety to aid in focus and concentration discussed, again, with patient/guardian physically nodding, voicing understanding, and engaged in treatment plan with [facility] Jovel [facility]. Plan Of Treatment Future Test Test Name Order Date Hemoglobin A1c CLIA Waived 04/11/2025 Next Appt Details Provider Name:Preethi Callaway Seanbruno, 04/23/2025 11:00:00 AM, [address], [place], [address], Insurance Providers Payer Name Payer Address Payer Phone Subscriber Number Group Number Insured Name Patient Relationship to Insured Coverage Start Date Coverage End Date [facility] Attn Claims Department [address] [place] [address] [phone] [id number] Sacha Pedraza Self - patient is the insured 5 [facility] Attn Claims Department [address] [place] [address] [phone] [id number] Sacha Pedraza Self - patient is the insured 5 Medical (General) History Medical History History ICD Code anxiety mood disorder major depressive disorder right arm - Brachial plexus Surgical History Surgery Date(Month/Year) leg surgery x2 right arm ride side neck Hospitalization History Reason Date(Month/Year) lakhani - [facility] 01/2025 Hospitalization at [facility] 02/2025 [facility] 02/2025
--- NOTE | 2025-04-12 14:15 | PC.NURSE ---
Pt. states she urinated but forgot to pee in the cup.
[2025-04-12 14:40] LABS: Hematocrit 40.2 % (37.0-47.0); Hemoglobin 12.7 g/dL (12.0-15.0); Immature Granulocyte Percent A 0.3 % (0-0.5); Lymphocytes Absolute Auto 1.63 K/mm3 (0.9-3.2); Mean Corpuscular HGB Conc 31.6 g/dl (32-36); Mean Corpuscular Hemoglobin 27.3 pg (26-34); Mean Corpuscular Volume 86.5 fl (80-100); Nucleated Red Blood Cells Absolute Auto 0.000 K/mm3 (0.0-0.012); Nucleated Red Blood Cells Perc 0.0 % (0.0-0.2); Platelet Count Result 281 k/mm3 (150-375); Red Blood Count 4.65 M/mm3 (4.2-5.4); White Blood Count 6.3 K/mm3 (4.5-10.0)
[2025-04-12 14:55] LABS: Alanine Aminotransferase 30 U/L (6-35); Albumin Level 4.5 g/dL (3.5-5.1); Alkaline Phosphatase 77 U/L (38-126); Anion Gap 11 mmol/L (4-12); Aspartate Amino Transferase 35 U/L (14-36); Bilirubin,Total 0.9 mg/dL (0.2-1.3); Blood Urea Nitrogen 10 mg/dL (7-17); Calcium 9.6 mg/dL (8.4-10.2); Carbon Dioxide 24 mmol/L (22-30); Chloride 104 mmol/L (98-107); Estimated Glomerular Filt Rate > 60; Glucose 87 mg/dL (65-110); Potassium 3.9 mmol/L (3.4-5.0); Sodium 139 mmol/L (137-145); Total Protein 9.0 g/dL (6.3-8.2)
[2025-04-12 15:27] LABS: Thyroid Stimulating Hormone 1.820 uIU/mL (0.465-4.680)
[2025-04-12 15:49] LABS: BEDSIDEPREGUCG Negative (Negative)
[2025-04-12 15:53] LABS: Add Urine Microscopic? NO; Appearance Urine Clear (Clear); Glucose Urine UA Negative (Negative); Leukocyte Esterase Ur Negative LEU/UL (Negative); Nitrate Urine Negative (Negative); Specific Grav Ur 1.027 (1.001-1.035)
--- NOTE | 2025-04-12 16:08 | PC.NURSE ---
EDP Dr. Ro would like to safety plan patient. Crisis staff called and made aware. Jamila at Crisis called back after speaking withe her supervisor hand workers and she states they will not undo their involuntary and that the patient cannot return to the [place] facility across the street. EDP made aware.
[2025-04-12 16:14] LABS: Cannabinoid Screen Urine Positive (Negative)
[2025-04-12 17:01] VITALS: BP 128/70; PULSE 83; RESP 16; TEMP 36.6; O2SAT 99
== END 2025-04-12 17:04 | disposition home or self-care (01) ==
PROVIDERS: Emergency Provider Emergency Medicine
DX: F32.A Depression, unspecified (principal); F41.9 Anxiety disorder, unspecified; F20.9 Schizophrenia, unspecified
CPT/HCPCS: 36415; 80053; 80307; 81003; 81025; 82077; 82948; 84443; 85025; 99283